=== PATIENT | female | born 1960 | race African-American/Black ===

== ENCOUNTER 2016-11-24 09:41 | Inpatient (IN) | payer OTHER ==
[2016-11-24 10:27] VITALS: BMI 33.3
--- NOTE | 2016-11-24 12:51 | HP ---
CIWA Score - CIWA Score Nausea/Vomitin Muscle Tremors: 3 Anxiety: 3 Agitation: 3 Paroxysmal Sweats: 2 Orientation: 0-Oriented Tacttile Disturbances: 2-Mild Itch/Numbness/Burn Auditory Disturbances: 2-Mild Harshness/Frighten Visual Disturbances: 2-Mild Sensitivity Headache: 2-Mild CIWA-Ar Total Score: 22 Admission ROS BHS - HPI Chief Complaint: I NEED HELP TO STOP DRINKING ALCOHOL Allergies/Adverse Reactions: Allergies Allergy/AdvReac Type Severity Reaction Status Date / Time No Known Allergies Allergy Verified 11/24/16 10:40 History of Present Illness: THIS 56 YEARS OLD FEMALE WITH ALCOHOL DEPENDENCE,WITHDRAWAL SYMPTOM,LAST DETOX 06/08/16 TO 06/12/16 [facility] SYNCOPE ALCOHOL RELATED HYPERTENSION BIPOLAR DISORDER MULTIPLE ADMISSIONS IN THE PAST NO SIGNIFICANT PERIOD OF SOBRIETY Exam Limitations: No Limitations - Ebola screening Have you traveled outside of the country in the last 21 days: No Have you been sick,other than usual withdrawal symptoms: No - Review of Systems Constitutional: Loss of Appetite, Malaise, Night Sweats, Changes in sleep, Weakness EENT: reports: Nose Congestion Respiratory: reports: No Symptoms reported Cardiac: reports: No Symptoms Reported GI: reports: Diarrhea, Nausea, Vomiting, Abdominal cramping : reports: No Symptoms Reported Musculoskeletal: reports: Back Pain, Muscle Pain Integumentary: reports: Dryness Endocrine: reports: No Symptoms Reported Hematology: reports: No Symptoms Reported Psychiatric: reports: other (BIPOLAR DISORDER) Patient History - Patient Medical History Hx Anemia: No Hx Asthma: Yes (NO MEDICATION) Hx Chronic Obstructive Pulmonary Disease (COPD): No Hx Cancer: No Hx Cardiac Disorders: No Hx Congestive Heart Failure: No Hx Hypertension: Yes (ON MEDS) Hx Hypercholesterolemia: No Hx Pacemaker: No HX Cerebrovascular Accident: No Hx Seizures: No Hx Dementia: No Hx Diabetes: No Hx Gastrointestinal Disorders: No Hx Liver Disease: No Hx Genitourinary Disorders: No Hx Sexually Transmitted Disorders: No Hx Renal Disease (ESRD): No Hx Thyroid Disease: No Hx Human Immunodeficiency Virus (HIV): No (LAST 2015 NEGATIVE) Hx Hepatitis C: No Hx Depression: Yes (ON MED) Hx Suicide Attempt: No Hx Bipolar Disorder: Yes (ON MED) Hx Schizophrenia: No Other Medical History: NO SUICIDAL,NO HOMICIDAL - Patient Surgical History Past Surgical History: Yes Hx Neurologic Surgery: No Hx Cataract Extraction: No Hx Cardiac Surgery: No Hx Lung Surgery: No Hx Breast Surgery: No Hx Breast Biopsy: No Hx Abdominal Surgery: No Hx Appendectomy: No Hx Cholecystectomy: No Hx Genitourinary Surgery: No Hx Section: No Hx Orthopedic Surgery: No Hx Hysterectomy: No Other Surgical History: fibroid uterus 2012 Anesthesia Reaction: No - PPD History Previous Implant?: Yes Documented Results: Negative w/proof Implanted On Prior [facility] Admission?: Yes Date: 06/10/16 Results: 0 mm PPD to be Administered?: No - Reproductive History Patient is a Female of Child Bearing Age (11 -55 yrs old): No Last Menstrual Period: 11/08/16 Patient : No - Smoking Cessation Smoking history: Never smoked Have you smoked in the past 12 months: No Hx Chewing Tobacco Use: No Initiated information on smoking cessation: No - Substance & Tx. History Hx Alcohol Use: Yes Hx Substance Use: No Substance Use Type: Alcohol Hx Substance Use Treatment: Yes ([facility] 06/08/16 TO 06/12/16 ) - Substances Abused Alcohol-vodka Route: Oral Frequency: Daily Amount used: 1 pt. Age of first use: 15 Date of Last Use: 11/24/16 Family Disease History - Family Disease History Family History: Denies Family Disease History: Other: Father (never meet) Admission Physical Exam BHS - Vital Signs Vital Signs: Vital Signs - 24 hr 11/24/16 10:23 Temperature 98 F Pulse Rate 78 Respiratory 18 Rate Blood Pressure 134/92 - Physical General Appearance: Yes: Moderate Distress, Tremorous, Irritable, Sweating, Anxious HEENTM: Yes: Within Normal Limits, Normocephalic, [place], Nasal Congestion Respiratory: Yes: Lungs Clear Neck: Yes: Within Normal Limits, Supple Breast: Yes: Breast Exam Deferred Cardiology: Yes: Within Normal Limits, Regular Rhythm, Regular Rate, S1, S2 Abdominal: Yes: Within Normal Limits, Normal Bowel Sounds, Non Tender, Flat, Soft Genitourinary: Yes: Within Normal Limits Back: Yes: Muscle Spasm Musculoskeletal: Yes: Back pain, Muscle Pain Extremities: Yes: Within Normal Limits, Tremors, Other (UNABLE TO DO FLEXION OF RIGHT RING FINGER FOR 2 YEARS FORM OLD LECERATION) 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, Fully Oriented, Alert, Motor Strength 5/5 Integumentary: Yes: Dry Lymphatic: Yes: Within Normal Limits - Diagnostic (1) Alcohol dependence with withdrawal Current Visit: No Status: Chronic Qualifiers: Complication of substance-induced condition: uncomplicated Qualified Code(s): F10.230 - Alcohol dependence with withdrawal, uncomplicated (2) Uterine fibroid Current Visit: No Status: Chronic Qualifiers: Uterine leiomyoma location: unspecified location Qualified Code(s): D25.9 - Leiomyoma of uterus, unspecified (3) Syncope Current Visit: Yes Status: Acute (4) Essential hypertension Current Visit: Yes Status: Acute (5) Bipolar disorder Current Visit: Yes Status: Acute (6) Asthma Current Visit: Yes Status: Acute Cleared for Admission S - Detox or Rehab S Level of Care: Medically Managed Detox Regimen/Protocol: Librium S Breath Alcohol Content Breath Alcohol Content: 0.032 Urine Pregancy Test - Result Urine Test Results: Negative- NO Line Present Urine Drug Screen - Results Drug Screen Negative: Yes
[2016-11-24] MEDS ORDERED: MENTHOL/PHENOL 1 EACH UD MM PRN (13:00)
[2016-11-24] MEDS ORDERED: chlordiazePOXIDE HCL 25 MG CAPSULE PO ONE (13:00)
[2016-11-24] MEDS ORDERED: MAG HYDROX/AL HYDROX/SIMETH 30 ML UNIT-DOSE CUP PO PRN (13:00)
[2016-11-24] MEDS ORDERED: hydrOXYzine PAMOATE 50 MG CAPSULE (FP) PO PRN (13:00)
[2016-11-24] MEDS ORDERED: IBUPROFEN 400 MG TABLET (FP) PO PRN (13:00)
[2016-11-24] MEDS ORDERED: diphenhydrAMINE HCL 50 MG CAPSULE PO PRN (13:00)
[2016-11-24] MEDS ORDERED: ACETAMINOPHEN 325 MG TABLET (FP) PO PRN (13:00)
[2016-11-24] MEDS ORDERED: MAGNESIUM HYDROX 2400MG/30ML ORAL SUSPENSION 30 ML CUP PO PRN (13:00)
[2016-11-24] MEDS ORDERED: MAGNESIUM CITRATE 300 ML BOTTLE PO PRN (13:00)
[2016-11-24] MEDS ORDERED: chlordiazePOXIDE HCL 25 MG CAPSULE PO PRN (13:00)
[2016-11-24] MEDS ORDERED: LOPERAMIDE HCL 2 MG CAPSULE PO PRN (13:00)
[2016-11-24] MEDS ORDERED: P-EPHED 60MG/TRIPROLIDI 2.5MG TABLET PO PRN (13:00)
[2016-11-24] MEDS ORDERED: guaiFENesin/D-METHORPHAN HB 10 ML UNIT-DOSE CUPS PO PRN (13:00)
--- NOTE | 2016-11-24 17:05 | CONSULT ---
[facility] Psychiatric Consult - Data Date of interview: 11/24/16 Admission source: [facility] Identifying data: Readmission to [facility] for this 56 y/o AA female seeking detox treatment on for alcohol dependence.Patient is ,a mother of three,domiciled,unemployed and supported on Public Assistance. Substance Abuse History: - Smoking Cessation. Smoking history: Never smoked. Have you smoked in the past 12 months: No. Hx Chewing Tobacco Use: No. Initiated information on smoking cessation: No. - Substance & Tx. History. Hx Alcohol Use: Yes. Hx Substance Use: No. Substance Use Type: Alcohol. Hx Substance Use Treatment: Yes ([facility] 06/08/16 TO 06/12/16 ). - Substances Abused. Alcohol-vodka. Route: Oral. Frequency: Daily. Amount used: 1 pt. Age of first use: 15. Date of Last Use: 11/24/16. Confirmed by patient in this interview. Medical History: Bronchial asthma,hypertension and a history of uterine fibroids. Psychiatric History: History of a distant psychiatric hospitalization at [facility].Diagnosed with " Bipolar Disorder and Schizophrenia." Apparently, the patient never followed up with OPD care.Ms Kemp got medicated for the first time,only recently,during her stay at a senior living ([facility]) by the on -site psychiatrist.She used to be on zoloft and risperdal.Patient is currently on lexapro 10 mg/day + risperdal 1 mg/day (confirmed by pharmacist at [facility] in [facility]).Ms Kemp has authorized (verbally) this credit underwriter to contact the pharmacist by telephone.Patient denies history of suicide attempts. Physical/Sexual Abuse/Trauma History: Patient denies. Additional Comment: Drug Screen is negative. Mental Status Exam - Mental Status Exam Alert and Oriented to: Time, Place, Person Cognitive Function: Good Patient Appearance: Well Groomed Mood: Anxious, Hopeful Affect: Appropriate, Normal Range Patient Behavior: Fatigued, Appropriate, Cooperative Speech Pattern: Clear, Appropriate Voice Loudness: Normal Thought Process: Goal Oriented Thought Disorder: Not Present Hallucinations: Denies Suicidal Ideation: Denies Homicidal Ideation: Denies Insight/Judgement: Fair Sleep: Poorly, Difficulty falling asleep Appetite: Good Muscle strength/Tone: Normal Gait/Station: Normal Psychiatric Findings - Problem List ([place] 1, 2,3) (1) Alcohol dependence with withdrawal Current Visit: Yes Status: Acute Qualifiers: Complication of substance-induced condition: uncomplicated Qualified Code(s): F10.230 - Alcohol dependence with withdrawal, uncomplicated (2) Substance-induced sleep disorder Current Visit: Yes Status: Acute (3) Substance induced mood disorder Current Visit: Yes Status: Acute (4) Bipolar disorder Current Visit: Yes Status: Chronic Comment: History. (5) Asthma Current Visit: Yes Status: Chronic (6) Essential hypertension Current Visit: Yes Status: Chronic (7) Uterine fibroid Current Visit: Yes Status: Chronic Qualifiers: Uterine leiomyoma location: unspecified location Qualified Code(s): D25.9 - Leiomyoma of uterus, unspecified - Initial Treatment Plan Initial Treatment Plan: Psychoeducation.Detoxification.Medications : lexapro 10 mg po daily + risperdal 1 mg po hs + zolpidem 10 mg po hs prn.Side effects/ benefits discussed with the patient.She agreees with this plan of care.Observation.
[2016-11-24] MEDS: chlordiazePOXIDE HCL 25 MG CAPSULE PO SCH ×2 (17:26→22:41)
[2016-11-24 21:45] LABS: URINE APPEARANCE CLEAR; URINE BILIRUBIN NEGATIVE (NEGATIVE); URINE COLOR YELLOW; URINE GLUCOSE (UA) NEGATIVE (NEGATIVE); URINE KETONE NEGATIVE (NEGATIVE); URINE LEUK ESTERASE NEGATIVE (NEGATIVE); URINE NITRITE NEGATIVE (NEGATIVE); URINE UROBILINOGEN NEGATIVE E.U./dl (0.2-1.0)
[2016-11-24 21:46] LABS: URINE BLOOD 1+ (NEGATIVE); URINE PROTEIN 2+ (NEGATIVE)
[2016-11-24 21:50] LABS: URINE MUCUS RARE; URINE RBC 11 /hpf (0-3); URINE WBC 2 /hpf (3-5)
[2016-11-24] MEDS: THIAMINE HCL 100 MG TABLET (FP) PO SCH (22:41)
[2016-11-24] MEDS: ENALAPRIL MALEATE 10 MG TABLET (FP) PO SCH (22:41)
[2016-11-24] MEDS: risperiDONE 1 MG TABLET (FP) PO SCH (22:41)
[2016-11-25] MEDS: chlordiazePOXIDE HCL 25 MG CAPSULE PO SCH ×4 (05:54→22:43)
[2016-11-25] MEDS: PRENATAL VITAMINS W/ FOLIC ACID TABLET (FP) PO SCH (10:41)
[2016-11-25] MEDS: ESCITALOPRAM OXALATE 10 MG TABLET (FP) PO SCH (10:41)
[2016-11-25] MEDS: TRIAMTERENE AND HCTZ - 37.5 MG/25 MG CAPSULE PO SCH (10:41)
[2016-11-25] MEDS: ENALAPRIL MALEATE 10 MG TABLET (FP) PO SCH ×2 (10:41→22:44)
[2016-11-25 11:13] LABS: MCH 32.5 pg (25.7-33.7); MCHC 33.5 g/dl (32.0-36.0); MEAN CELL VOLUME 97.1 fl (80-96); MEAN PLT VOLUME 10.6 fl (7.5-11.1); PLATELET COUNT 235 K/MM3 (134-434); RDW 13.6 % (11.6-15.6); WHITE BLOOD COUNT 5.7 K/mm3 (4.0-10.0)
[2016-11-25 11:31] LABS: ALBUMIN 3.8 g/dl (3.4-5.0); BILIRUBIN,TOTAL 0.5 mg/dL (0.2-1.0); CALCIUM 9.5 mg/dL (8.5-10.1); CREATININE 1.1 mg/dL (0.55-1.02); TOT PROT 7.8 g/dl (6.4-8.2)
--- NOTE | 2016-11-25 13:07 | PN ---
S CIWA - CIWA Score Nausea/Vomitin Muscle Tremors: 3 Anxiety: 3 Agitation: 3 Paroxysmal Sweats: 1-Minimal Palms Moist Orientation: 0-Oriented Tacttile Disturbances: 1-Very Mild Itch/Numbness Auditory Disturbances: 1-Very Mild Visual Disturbances: 1-Very Mild Sensitivity Headache: 2-Mild CIWA-Ar Total Score: 18 BHS Progress Note (SOAP) Subjective: ALERT,IRRITABLE,ANXIOUS,INTERRUPTED SLEEP,TREMOR Objective: 11/25/16 13:05 Vital Signs Temperature 97.7 F 11/25/16 10:29 Pulse Rate 76 11/25/16 10:29 Respiratory Rate 18 11/25/16 10:29 Blood Pressure 133/92 11/25/16 10:29 O2 Sat by Pulse Oximetry (%) EKG NSR,LVH NO CHEST PAIN,NO SOB,NO DIZZINESS 11/25/16 13:06 Laboratory Last Values WBC 5.7 K/mm3 (4.0-10.0) 11/25/16 06:15 RBC 3.58 M/mm3 (3.60-5.2) L 11/25/16 06:15 Hgb 11.6 GM/dL (10.7-15.3) 11/25/16 06:15 Hct 34.8 % (32.4-45.2) 11/25/16 06:15 MCV 97.1 fl (80-96) H 11/25/16 06:15 MCHC 33.5 g/dl (32.0-36.0) 11/25/16 06:15 RDW 13.6 % (11.6-15.6) 11/25/16 06:15 Plt Count 235 K/MM3 (134-434) D 11/25/16 06:15 MPV 10.6 fl (7.5-11.1) D 11/25/16 06:15 Sodium 140 mmol/L (136-145) 11/25/16 06:15 Potassium 3.9 mmol/L (3.5-5.1) 11/25/16 06:15 Chloride 103 mmol/L (98-107) 11/25/16 06:15 Carbon Dioxide 28 mmol/L (21-32) 11/25/16 06:15 Anion Gap 9 (8-16) 11/25/16 06:15 BUN 22 mg/dL (7-18) H D 11/25/16 06:15 Creatinine 1.1 mg/dL (0.55-1.02) H D 11/25/16 06:15 Creat Clearance w eGFR 51.38 (>60) 11/25/16 06:15 Random Glucose 86 mg/dL (74-106) 11/25/16 06:15 Calcium 9.5 mg/dL (8.5-10.1) 11/25/16 06:15 Total Bilirubin 0.5 mg/dL (0.2-1.0) D 11/25/16 06:15 AST 23 U/L (15-37) D 11/25/16 06:15 ALT 27 U/L (12-78) D 11/25/16 06:15 Alkaline Phosphatase 98 U/L (45-117) 11/25/16 06:15 Total Protein 7.8 g/dl (6.4-8.2) 11/25/16 06:15 Albumin 3.8 g/dl (3.4-5.0) 11/25/16 06:15 Urine Color Yellow 11/24/16 21:00 Urine Appearance Clear 11/24/16 21:00 Urine pH 5.0 (5.0-8.0) 11/24/16 21:00 Ur Specific [place] 1.017 (1.001-1.035) 11/24/16 21:00 Urine Protein 2+ (NEGATIVE) H 11/24/16 21:00 Urine Glucose (UA) Negative (NEGATIVE) 11/24/16 21:00 Urine Ketones Negative (NEGATIVE) 11/24/16 21:00 Urine Blood 1+ (NEGATIVE) H 11/24/16 21:00 Urine Nitrite Negative (NEGATIVE) 11/24/16 21:00 Urine Bilirubin Negative (NEGATIVE) 11/24/16 21:00 Urine Urobilinogen Negative E.U./dl (0.2-1.0) 11/24/16 21:00 Ur Leukocyte Esterase Negative (NEGATIVE) 11/24/16 21:00 Urine RBC 11 /hpf (0-3) 11/24/16 21:00 Urine WBC 2 /hpf (3-5) 11/24/16 21:00 Ur Epithelial Cells Few /hpf (FEW) 11/24/16 21:00 Urine Mucus Rare 11/24/16 21:00 Hepatitis C Antibody <0.1 s/co ratio (0.0-0.9) 11/24/16 13:00 Assessment: 11/25/16 13:06 WITHDRAWAL SYMPTOM Plan: CONTINUE DETOX,ENCOURAGE ORAL FLUID
[2016-11-25] MEDS: ZOLPIDEM TARTRATE 10 MG TABLET (PARK CARE ONLY) PO PRN (22:43)
[2016-11-25] MEDS: THIAMINE HCL 100 MG TABLET (FP) PO SCH (22:44)
[2016-11-25] MEDS: risperiDONE 1 MG TABLET (FP) PO SCH (22:44)
[2016-11-26] MEDS: chlordiazePOXIDE HCL 25 MG CAPSULE PO SCH ×2 (05:41→10:30)
[2016-11-26] MEDS: PRENATAL VITAMINS W/ FOLIC ACID TABLET (FP) PO SCH (10:30)
[2016-11-26] MEDS: ESCITALOPRAM OXALATE 10 MG TABLET (FP) PO SCH (10:30)
[2016-11-26] MEDS: TRIAMTERENE AND HCTZ - 37.5 MG/25 MG CAPSULE PO SCH (10:31)
[2016-11-26] MEDS: ENALAPRIL MALEATE 10 MG TABLET (FP) PO SCH ×2 (10:31→22:27)
--- NOTE | 2016-11-26 13:33 | PN ---
BHS CIWA - CIWA Score Nausea/Vomitin Muscle Tremors: 3 Anxiety: 3 Agitation: 3 Paroxysmal Sweats: 1-Minimal Palms Moist Orientation: 0-Oriented Tacttile Disturbances: 1-Very Mild Itch/Numbness Auditory Disturbances: 1-Very Mild Visual Disturbances: 1-Very Mild Sensitivity Headache: 2-Mild CIWA-Ar Total Score: 18 BHS Progress Note (SOAP) Subjective: ALERT,IRRITABLE,ANXIOUS,INTERRUPTED SLEEP,TREMOR,PAIN IN THE BODY AND BACK Objective: 11/26/16 13:31 Vital Signs Temperature 98.6 F 11/26/16 09:57 Pulse Rate 76 11/26/16 09:57 Respiratory Rate 16 11/26/16 09:57 Blood Pressure 140/95 11/26/16 09:57 O2 Sat by Pulse Oximetry (%) Assessment: 11/26/16 13:32 WITHDRAWAL SYMPTOM 11/26/16 13:32 Plan: CONTINUE DETOX
[2016-11-26] MEDS: chlordiazePOXIDE 5 MG CAPSULE PO SCH ×2 (18:12→22:26)
[2016-11-26] MEDS: THIAMINE HCL 100 MG TABLET (FP) PO SCH (22:26)
[2016-11-26] MEDS: risperiDONE 1 MG TABLET (FP) PO SCH (22:26)
[2016-11-26] MEDS: ZOLPIDEM TARTRATE 10 MG TABLET (PARK CARE ONLY) PO PRN (22:27)
[2016-11-27] MEDS: chlordiazePOXIDE 5 MG CAPSULE PO SCH ×2 (05:51→10:29)
--- NOTE | 2016-11-27 10:13 | PN ---
BHS Progress Note (SOAP) Subjective: feeling better ,seats, wants early am d/c Objective: 11/27/16 10:12 Vital Signs Temperature 97.3 F L 11/27/16 06:00 Pulse Rate 69 11/27/16 06:00 Respiratory Rate 18 11/27/16 06:00 Blood Pressure 118/75 11/27/16 06:00 O2 Sat by Pulse Oximetry (%) Laboratory Tests 11/24/16 11/24/16 11/25/16 13:00 21:00 06:15 WBC 5.7 RBC 3.58 L Hgb 11.6 Hct 34.8 MCV 97.1 H MCHC 33.5 RDW 13.6 Plt Count 235 D MPV 10.6 D Sodium Potassium Chloride Carbon Dioxide Anion Gap BUN Creatinine Creat Clearance w eGFR Random Glucose Calcium Total Bilirubin AST ALT Alkaline Phosphatase Total Protein Albumin Urine Color Yellow Urine Appearance Clear Urine pH 5.0 Ur Specific [place] 1.017 Urine Protein 2+ H Urine Glucose (UA) Negative Urine Ketones Negative Urine Blood 1+ H Urine Nitrite Negative Urine Bilirubin Negative Urine Urobilinogen Negative Ur Leukocyte Esterase Negative Urine RBC 11 Urine WBC 2 Ur Epithelial Cells Few Urine Mucus Rare RPR Titer Hepatitis C Antibody <0.1 11/25/16 11/25/16 06:15 06:15 WBC RBC Hgb Hct MCV MCHC RDW Plt Count MPV Sodium 140 Potassium 3.9 Chloride 103 Carbon Dioxide 28 Anion Gap 9 BUN 22 H D Creatinine 1.1 H D Creat Clearance w eGFR 51.38 Random Glucose 86 Calcium 9.5 Total Bilirubin 0.5 D AST 23 D ALT 27 D Alkaline Phosphatase 98 Total Protein 7.8 Albumin 3.8 Urine Color Urine Appearance Urine pH Ur Specific [place] Urine Protein Urine Glucose (UA) Urine Ketones Urine Blood Urine Nitrite Urine Bilirubin Urine Urobilinogen Ur Leukocyte Esterase Urine RBC Urine WBC Ur Epithelial Cells Urine Mucus RPR Titer Nonreactive Hepatitis C Antibody pt aox3 in nad ambulating Assessment: 11/27/16 10:12 withdrawal sx;s Plan: cont. detox increase fluids d/c at 7am
[2016-11-27] MEDS: PRENATAL VITAMINS W/ FOLIC ACID TABLET (FP) PO SCH (10:29)
[2016-11-27] MEDS: ESCITALOPRAM OXALATE 10 MG TABLET (FP) PO SCH (10:29)
[2016-11-27] MEDS: ENALAPRIL MALEATE 10 MG TABLET (FP) PO SCH ×2 (10:29→22:25)
[2016-11-27] MEDS: TRIAMTERENE AND HCTZ - 37.5 MG/25 MG CAPSULE PO SCH (10:29)
--- NOTE | 2016-11-27 11:33 | EKG ---
Test Reason : Blood Pressure : / mmHG Vent. Rate : 076 BPM Atrial Rate : 076 BPM P-R Int : 172 ms QRS Dur : 092 ms QT Int : 386 ms P-R-T Axes : 050 001 065 degrees QTc Int : 434 ms NORMAL SINUS RHYTHM MODERATE VOLTAGE CRITERIA FOR LVH, MAY BE NORMAL VARIANT NONSPECIFIC ST ABNORMALITY ABNORMAL ECG NO PREVIOUS ECGS AVAILABLE Confirmed by JOSE HERBERT MD ([id number]) on 11/27/2016 11:32:34 AM Referred By: Parvez Esparza Confirmed By:JOSE HERBERT MD
[2016-11-27] MEDS: chlordiazePOXIDE HCL 10 MG CAPSULE PO SCH ×2 (17:05→22:25)
[2016-11-27] MEDS: THIAMINE HCL 100 MG TABLET (FP) PO SCH (22:24)
[2016-11-27] MEDS: risperiDONE 1 MG TABLET (FP) PO SCH (22:25)
[2016-11-28] MEDS: chlordiazePOXIDE HCL 10 MG CAPSULE PO SCH (05:43)
[2016-11-28 06:21] VITALS: BP 136/92; PULSE 78; TEMP 97
--- NOTE | 2016-11-29 16:40 | DS ---
[facility] Detox Discharge Summary Admission Date: 11/24/16 Discharge Date: 11/28/16 - History Present History: Alcohol Dependence Pertinent Past History: Asthma HTN Uterine Fibroid - Physical Exam Results Vital Signs: Vital Signs Temperature 97 F L 11/28/16 06:21 Pulse Rate 78 11/28/16 06:21 Respiratory Rate 18 11/28/16 06:21 Blood Pressure 136/92 11/28/16 06:21 O2 Sat by Pulse Oximetry (%) Pertinent Admission Physical Exam Findings: Withdrawal sx. Laboratory Last Values WBC 5.7 K/mm3 (4.0-10.0) 11/25/16 06:15 RBC 3.58 M/mm3 (3.60-5.2) L 11/25/16 06:15 Hgb 11.6 GM/dL (10.7-15.3) 11/25/16 06:15 Hct 34.8 % (32.4-45.2) 11/25/16 06:15 MCV 97.1 fl (80-96) H 11/25/16 06:15 MCHC 33.5 g/dl (32.0-36.0) 11/25/16 06:15 RDW 13.6 % (11.6-15.6) 11/25/16 06:15 Plt Count 235 K/MM3 (134-434) D 11/25/16 06:15 MPV 10.6 fl (7.5-11.1) D 11/25/16 06:15 Sodium 140 mmol/L (136-145) 11/25/16 06:15 Potassium 3.9 mmol/L (3.5-5.1) 11/25/16 06:15 Chloride 103 mmol/L (98-107) 11/25/16 06:15 Carbon Dioxide 28 mmol/L (21-32) 11/25/16 06:15 Anion Gap 9 (8-16) 11/25/16 06:15 BUN 22 mg/dL (7-18) H D 11/25/16 06:15 Creatinine 1.1 mg/dL (0.55-1.02) H D 11/25/16 06:15 Creat Clearance w eGFR 51.38 (>60) 11/25/16 06:15 Random Glucose 86 mg/dL (74-106) 11/25/16 06:15 Calcium 9.5 mg/dL (8.5-10.1) 11/25/16 06:15 Total Bilirubin 0.5 mg/dL (0.2-1.0) D 11/25/16 06:15 AST 23 U/L (15-37) D 11/25/16 06:15 ALT 27 U/L (12-78) D 11/25/16 06:15 Alkaline Phosphatase 98 U/L (45-117) 11/25/16 06:15 Total Protein 7.8 g/dl (6.4-8.2) 11/25/16 06:15 Albumin 3.8 g/dl (3.4-5.0) 11/25/16 06:15 Urine Color Yellow 11/24/16 21:00 Urine Appearance Clear 11/24/16 21:00 Urine pH 5.0 (5.0-8.0) 11/24/16 21:00 Ur Specific [place] 1.017 (1.001-1.035) 11/24/16 21:00 Urine Protein 2+ (NEGATIVE) H 11/24/16 21:00 Urine Glucose (UA) Negative (NEGATIVE) 11/24/16 21:00 Urine Ketones Negative (NEGATIVE) 11/24/16 21:00 Urine Blood 1+ (NEGATIVE) H 11/24/16 21:00 Urine Nitrite Negative (NEGATIVE) 11/24/16 21:00 Urine Bilirubin Negative (NEGATIVE) 11/24/16 21:00 Urine Urobilinogen Negative E.U./dl (0.2-1.0) 11/24/16 21:00 Ur Leukocyte Esterase Negative (NEGATIVE) 11/24/16 21:00 Urine RBC 11 /hpf (0-3) 11/24/16 21:00 Urine WBC 2 /hpf (3-5) 11/24/16 21:00 Ur Epithelial Cells Few /hpf (FEW) 11/24/16 21:00 Urine Mucus Rare 11/24/16 21:00 RPR Titer Nonreactive (NONREACTIVE) 11/25/16 06:15 Hepatitis C Antibody <0.1 s/co ratio (0.0-0.9) 11/24/16 13:00 labs noted - Treatment Hospital Course: Detox Protocol Followed, Detoxed Safely, Responded well, Discharged Condition Good Patient has Accepted a Rehab Referral to: Pt. refused referral to rehab, information for IOP at [facility] - Medication Discharge Medications: Ambulatory Orders Enalapril Maleate [Vasotec -] 20 mg PO BID #60 tablet 07/05/16 Hctz 25Mg/Triamterene [Dyazide 25/37.5 -] 1 cap PO DAILY #30 capsule 07/05/16 Trazodone HCl [Desyrel -] 50 mg PO HS #30 tablet 07/05/16 Escitalopram Oxalate [Lexapro -] 10 mg PO DAILY #30 tablet 11/24/16 Risperidone [Risperdal] 1 mg PO DAILY #30 tablet 11/24/16 - Diagnosis (1) Alcohol dependence with withdrawal Status: Acute Qualifiers: Complication of substance-induced condition: uncomplicated Qualified Code(s): F10.230 - Alcohol dependence with withdrawal, uncomplicated (2) Substance induced mood disorder Status: Acute (3) Substance-induced sleep disorder Status: Acute (4) Asthma Status: Chronic (5) Bipolar disorder Status: Chronic (6) Essential hypertension Status: Chronic (7) Uterine fibroid Status: Chronic Qualifiers: Uterine leiomyoma location: unspecified location Qualified Code(s): D25.9 - Leiomyoma of uterus, unspecified - AMA Did Patient Leave Against Medical Advice: No
== END 2016-11-28 07:25 | disposition home or self-care (01) | DRG 775 ==
LOC: YASAS 09:41 → Y6N 11:52
PROVIDERS: ADMIT Internal Medicine; ATTEND Internal Medicine
PROC: HZ2ZZZZ Detoxification Services for Substance Abuse Treatment (ICD-10-PCS; principal; 2016-11-28)
DX: F10.230 Alcohol dependence with withdrawal, uncomplicated (principal); F19.24 Other psychoactive substance dependence with psychoactive substance-induced mood disorder; F19.282 Other psychoactive substance dependence with psychoactive substance-induced sleep disorder; F32.9 Major depressive disorder, single episode, unspecified; I10 Essential (primary) hypertension; J45.909 Unspecified asthma, uncomplicated; D25.9 Leiomyoma of uterus, unspecified; R55 Syncope and collapse
CPT/HCPCS: 36415; 80053; 81003; 81015; 85027; 86593; 93005; 93010; J2794

== ENCOUNTER 2017-06-04 14:20 | Inpatient (IN) | payer OTHER ==
[2017-06-04 17:15] VITALS: BMI 33.3
--- NOTE | 2017-06-04 18:57 | HP ---
CIWA Score - CIWA Score Nausea/Vomitin-Mild Nausea/No Vomiting Muscle Tremors: 4-Moderate,w/Arms Extend Anxiety: 5 Agitation: 4-Moderately Restless Paroxysmal Sweats: 1-Minimal Palms Moist Orientation: 2-Disoriented Date<2 days Tacttile Disturbances: 0-None Auditory Disturbances: 0-None Visual Disturbances: 0-None Headache: 0-None Present CIWA-Ar Total Score: 17 Admission ROS BHS - HPI Chief Complaint: WITHDRAWAL SX PATIENT LIVES IN [facility], [phone] REPORTS RECENT HOSPITALIZED X 5 DAYS, DISCHARGED BACK TO [facility] WITH MILDER MEDICATION CHANGED, HACK SAW OPERATOR CALLED NO ANSWER Allergies/Adverse Reactions: Allergies Allergy/AdvReac Type Severity Reaction Status Date / Time No Known Allergies Allergy Verified 06/04/17 17:28 History of Present Illness: 56 YEARS OLD FEMALE WITH LONG HISTORY OF ALCOHOL DEPENDENCE HAS HYPERTENSION AND BIPOLAR II IS ADMITTED TO DETOX PATIENT HAS BENZO IN URINE REPORTS "FEW DAYS AGO" WENT TO [facility] FOR ALCOHOL INTOXICATION Exam Limitations: No Limitations - Ebola screening Have you traveled outside of the country in the last 21 days: No Have you had contact with anyone from an Ebola affected area: No Have you been sick,other than usual withdrawal symptoms: No Do you have a fever: No - Review of Systems Constitutional: Changes in sleep, Weight Stable EENT: reports: No Symptoms Reported Respiratory: reports: No Symptoms reported Cardiac: reports: No Symptoms Reported GI: reports: Nausea, Poor Fluid Intake, Abdominal cramping : reports: No Symptoms Reported Musculoskeletal: reports: No Symptoms Reported Integumentary: reports: No Symptoms Reported Neuro: reports: Tremors Endocrine: reports: No Symptoms Reported Hematology: reports: No Symptoms Reported Psychiatric: reports: Judgement Intact, Anxious, Depressed Other Systems: Reviewed and Negative Patient History - Patient Medical History Hx Anemia: No Hx Asthma: No (NO MEDICATION) Hx Chronic Obstructive Pulmonary Disease (COPD): No Hx Cancer: No Hx Cardiac Disorders: No Hx Congestive Heart Failure: No Hx Hypertension: Yes (ON MEDS) Hx Hypercholesterolemia: No Hx Pacemaker: No HX Cerebrovascular Accident: No Hx Seizures: No Hx Dementia: No Hx Diabetes: No Hx Gastrointestinal Disorders: No Hx Liver Disease: No Hx Genitourinary Disorders: No Hx Sexually Transmitted Disorders: No Hx Renal Disease (ESRD): No Hx Thyroid Disease: No Hx Human Immunodeficiency Virus (HIV): No (LAST 2015 NEGATIVE) Hx Hepatitis C: No Hx Depression: Yes (ON MED) Hx Suicide Attempt: No Hx Bipolar Disorder: Yes (ON MED) Hx Schizophrenia: No - Patient Surgical History Past Surgical History: Yes Hx Neurologic Surgery: No Hx Cataract Extraction: No Hx Cardiac Surgery: No Hx Lung Surgery: No Hx Breast Surgery: No Hx Breast Biopsy: No Hx Abdominal Surgery: No Hx Appendectomy: No Hx Cholecystectomy: No Hx Genitourinary Surgery: No Hx Section: No Hx Orthopedic Surgery: No Hx Hysterectomy: No Other Surgical History: fibroid uterus 2012 Anesthesia Reaction: No - PPD History Previous Implant?: Yes Documented Results: Negative w/proof Implanted On Prior [facility] Admission?: Yes Date: 11/26/16 Results: 0 mm PPD to be Administered?: No - Reproductive History Patient is a Female of Child Bearing Age (11 -55 yrs old): Yes Last Menstrual Period: 12/02/16 Patient : No - Smoking Cessation Smoking history: Never smoked Have you smoked in the past 12 months: No Hx Chewing Tobacco Use: No Initiated information on smoking cessation: No - Substance & Tx. History Hx Alcohol Use: Yes Hx Substance Use: No Substance Use Type: Alcohol Hx Substance Use Treatment: Yes (11/24-11/28/16 [facility]) - Substances Abused Alcohol Route: Oral Frequency: Daily Amount used: LIQUOR- 3 PINTS, BEER- 1 SIX PACK Age of first use: 18 Date of Last Use: 06/04/17 Family Disease History - Family Disease History Family Disease History: Heart Disease: Mother, Other: Father (never meet) Admission Physical Exam S - Vital Signs Vital Signs: Vital Signs - 24 hr 06/04/17 17:13 Temperature 98.2 F Pulse Rate 108 H Respiratory 20 Rate Blood Pressure 165/111 - Physical General Appearance: Yes: Appropriately Dressed, Mild Distress, Alcohol on Breath , Obese, Tremorous, Irritable, Sweating, Anxious HEENTM: Yes: Hearing grossly Normal, Normal ENT Inspection, Normocephalic, Normal Voice Respiratory: Yes: Chest Non-Tender, Lungs Clear, Normal Breath Sounds, No Respiratory Distress, No Accessory Muscle Use Neck: Yes: Supple, Trachea in good position Breast: Yes: Breasts Symetrical Cardiology: Yes: Regular Rhythm, S1, S2, Tachycardia Abdominal: Yes: Non Tender, Soft, Increased Bowel Sounds Genitourinary: Yes: Within Normal Limits Back: Yes: Normal Inspection Musculoskeletal: Yes: full range of Motion, Gait Steady Extremities: Yes: Normal Inspection, Normal Range of Motion, Non-Tender, Tremors Neurological: Yes: Alert, Motor Strength 5/5, Normal Response, Depressed Affect Integumentary: Yes: Warm, Pitting Edema (MILD BOTH ANKLES) Lymphatic: Yes: Within Normal Limits - Diagnostic (1) Alcohol dependence with withdrawal Current Visit: Yes Status: Acute Qualifiers: Complication of substance-induced condition: uncomplicated Qualified Code(s): F10.230 - Alcohol dependence with withdrawal, uncomplicated (2) Essential hypertension Current Visit: Yes Status: Chronic (3) Bipolar II disorder Current Visit: Yes Status: Suspected Cleared for Admission [facility] - Detox or Rehab [facility] Level of Care: Medically Managed Detox Regimen/Protocol: Librium [facility] Breath Alcohol Content Breath Alcohol Content: 0.241 Urine Pregancy Test - Result Urine Test Results: Negative- NO Line Present Urine Drug Screen - Results Drug Screen Negative: No Urine Drug Screen Results: BZO-Benzodiazepines
[2017-06-04] MEDS ORDERED: P-EPHED 60MG/TRIPROLIDI 2.5MG TABLET PO PRN (18:58)
[2017-06-04] MEDS ORDERED: MAGNESIUM HYDROX 2400MG/30ML ORAL SUSPENSION 30 ML CUP PO PRN (18:58)
[2017-06-04] MEDS ORDERED: MENTHOL/PHENOL 1 EACH UD MM PRN (18:58)
[2017-06-04] MEDS ORDERED: guaiFENesin/D-METHORPHAN HB 10 ML UNIT-DOSE CUPS PO PRN (18:58)
[2017-06-04] MEDS ORDERED: chlordiazePOXIDE HCL 25 MG CAPSULE PO PRN (18:58)
[2017-06-04] MEDS ORDERED: MAGNESIUM CITRATE 300 ML BOTTLE PO PRN (18:58)
[2017-06-04] MEDS ORDERED: LOPERAMIDE HCL 2 MG CAPSULE PO PRN (18:58)
[2017-06-04] MEDS ORDERED: ACETAMINOPHEN 325 MG TABLET (FP) PO PRN (18:58)
[2017-06-04] MEDS ORDERED: MAG HYDROX/AL HYDROX/SIMETH 30 ML UNIT-DOSE CUP PO PRN (18:58)
[2017-06-04] MEDS ORDERED: IBUPROFEN 400 MG TABLET (FP) PO PRN (18:58)
[2017-06-04] MEDS ORDERED: HYDROCHLOROTHIAZIDE 25 MG TABLET (FP) PO SCH ×2 (19:15)
[2017-06-04] MEDS ORDERED: ENALAPRIL MALEATE 10 MG TABLET (FP) PO SCH (19:15)
[2017-06-04] MEDS: METOPROLOL SUCCINATE 25 MG TAB.SR.24H (FP) PO SCH (20:16)
[2017-06-04] MEDS: TRIAMTERENE AND HCTZ - 37.5 MG/25 MG CAPSULE PO SCH (20:17)
[2017-06-04] MEDS: THIAMINE HCL 100 MG TABLET (FP) PO SCH (22:46)
[2017-06-04] MEDS: chlordiazePOXIDE HCL 25 MG CAPSULE PO SCH (22:47)
[2017-06-04] MEDS: ATORVASTATIN CA 40 MG TABLET (FP) PO SCH (22:47)
[2017-06-04] MEDS: diphenhydrAMINE HCL 50 MG CAPSULE PO PRN (22:47)
[2017-06-04 23:13] LABS: PH,URINE 5.5 (5.0-8.0); URINE APPEARANCE CLEAR; URINE BILIRUBIN NEGATIVE (NEGATIVE); URINE BLOOD 2+ (NEGATIVE); URINE COLOR LT. YELLOW; URINE GLUCOSE (UA) NEGATIVE (NEGATIVE); URINE KETONE NEGATIVE (NEGATIVE); URINE NITRITE NEGATIVE (NEGATIVE); URINE UROBILINOGEN 0.2 mg/dL (0.2-1.0)
[2017-06-04 23:14] LABS: URINE PROTEIN 2+ (NEGATIVE)
[2017-06-04 23:31] LABS: URINE BACTERIA RARE /hpf (NONE SEEN); URINE HYALINE CAST 3 /lpf; URINE MUCUS RARE; URINE RBC <1 /hpf (0-3); URINE WBC 1 /hpf (3-5)
[2017-06-05] MEDS: chlordiazePOXIDE HCL 25 MG CAPSULE PO SCH ×4 (05:59→22:44)
[2017-06-05] MEDS ORDERED: cloNIDine HCL 0.1 MG TABLET PO ONE (06:16)
[2017-06-05 09:46] LABS: MCH 32.8 pg (25.7-33.7); MCHC 34.1 g/dl (32.0-36.0); MEAN CELL VOLUME 96.3 fl (80-96); MEAN PLT VOLUME 8.8 fl (7.5-11.1); PLATELET COUNT 257 K/MM3 (134-434); RDW 13.9 % (11.6-15.6); WHITE BLOOD COUNT 5.3 K/mm3 (4.0-10.0)
[2017-06-05 09:54] LABS: ALBUMIN 3.4 g/dl (3.4-5.0); ALK PHOS 83 U/L (45-117); ANION GAP 10 (8-16); BILIRUBIN,TOTAL 0.5 mg/dL (0.2-1.0); CALCIUM 8.8 mg/dL (8.5-10.1); CO2 26 mmol/L (21-32); CREATININE 1.1 mg/dL (0.55-1.02); GLUCOSE,RANDOM 89 mg/dL (74-106); SGOT/AST 39 U/L (15-37); SGPT/ALT 37 U/L (12-78); TOT PROT 7.1 g/dl (6.4-8.2)
[2017-06-05] MEDS: METOPROLOL SUCCINATE 25 MG TAB.SR.24H (FP) PO SCH (11:00)
[2017-06-05] MEDS: PRENATAL VITAMINS W/ FOLIC ACID TABLET (FP) PO SCH (11:00)
[2017-06-05] MEDS: TRIAMTERENE AND HCTZ - 37.5 MG/25 MG CAPSULE PO SCH ×2 (11:28→11:39)
--- NOTE | 2017-06-05 11:55 | PN ---
S CIWA - CIWA Score Nausea/Vomitin Muscle Tremors: 4-Moderate,w/Arms Extend Anxiety: 4-Mod. Anxious/Guarded Agitation: 4-Moderately Restless Paroxysmal Sweats: 3 Orientation: 0-Oriented Tacttile Disturbances: 1-Very Mild Itch/Numbness Auditory Disturbances: 0-None Visual Disturbances: 0-None Headache: 1-Very Mild CIWA-Ar Total Score: 20 BHS Progress Note (SOAP) Subjective: nausea, sweats, interrupted sleep, anxiety, tremors Objective: 06/05/17 11:54 Vital Signs - 8 hr 06/05/17 06/05/17 06/05/17 07:12 07:29 10:43 Temperature 97.3 F L 97.0 F L 97.9 F Pulse Rate 93 H 73 98 H Respiratory 20 16 16 Rate Blood Pressure 172/114 121/70 153/99 Laboratory Tests 06/04/17 06/05/17 06/05/17 18:30 07:00 07:00 WBC 5.3 RBC 3.20 L Hgb 10.5 L Hct 30.8 L MCV 96.3 H MCH 32.8 MCHC 34.1 RDW 13.9 Plt Count 257 MPV 8.8 D Sodium 141 Potassium 4.7 D Chloride 105 Carbon Dioxide 26 Anion Gap 10 BUN 15 D Creatinine 1.1 H Creat Clearance w eGFR 51.38 Random Glucose 89 Calcium 8.8 Total Bilirubin 0.5 AST 39 H D ALT 37 D Alkaline Phosphatase 83 Total Protein 7.1 Albumin 3.4 Urine Color Lt. yellow Urine Appearance Clear Urine pH 5.5 Urine Protein 2+ H Urine Glucose (UA) Negative Urine Ketones Negative Urine Blood 2+ H Urine Nitrite Negative Urine Bilirubin Negative Urine Urobilinogen 0.2 Urine RBC <1 Urine WBC 1 Ur Epithelial Cells Rare Urine Bacteria Rare Hyaline Casts 3 Urine Mucus Rare RPR Titer 06/05/17 07:00 WBC RBC Hgb Hct MCV MCH MCHC RDW Plt Count MPV Sodium Potassium Chloride Carbon Dioxide Anion Gap BUN Creatinine Creat Clearance w eGFR Random Glucose Calcium Total Bilirubin AST ALT Alkaline Phosphatase Total Protein Albumin Urine Color Urine Appearance Urine pH Urine Protein Urine Glucose (UA) Urine Ketones Urine Blood Urine Nitrite Urine Bilirubin Urine Urobilinogen Urine RBC Urine WBC Ur Epithelial Cells Urine Bacteria Hyaline Casts Urine Mucus RPR Titer Nonreactive Assessment: 06/05/17 11:54 withdrawal sx, anemia Plan: cont detox, fluids
--- NOTE | 2017-06-05 13:02 | EKG ---
Test Reason : Blood Pressure : / mmHG Vent. Rate : 086 BPM Atrial Rate : 086 BPM P-R Int : 170 ms QRS Dur : 082 ms QT Int : 394 ms P-R-T Axes : 048 002 049 degrees QTc Int : 471 ms NORMAL SINUS RHYTHM MODERATE VOLTAGE CRITERIA FOR LVH, MAY BE NORMAL VARIANT BORDERLINE ECG WHEN COMPARED WITH ECG OF 24-NOV-2016 14:57, NO SIGNIFICANT CHANGE WAS FOUND Confirmed by ELLIS JHONSON MD ([id number]) on 06/05/2017 1:01:51 PM Referred By: Parvez Esparza Confirmed By:ELLIS JOHNSON MD
--- NOTE | 2017-06-05 14:43 | CONSULT ---
[facility] Psychiatric Consult - Data Date of interview: 06/05/17 Admission source: [facility] Identifying data: Another admission to [facility] for this 56 y/o AA female seeking detox treatment on for alcohol dependence.Patient is , a mother of three,domiciled ([facility]),unemployed and supported on Public Assistance. Substance Abuse History: Discussed with the patient.Confirmed this report. Smoking Cessation. Smoking history: Never smoked. Have you smoked in the past 12 months: No. Hx Chewing Tobacco Use: No. Initiated information on smoking cessation: No. - Substance & Tx. History. Hx Alcohol Use: Yes. Hx Substance Use: No. Substance Use Type: Alcohol. Hx Substance Use Treatment: Yes (11/24-11/28 [facility]). - Substances Abused. Alcohol. Route: Oral. Frequency: Daily. Amount used: LIQUOR- 3 PINTS, BEER- 1 SIX PACK. Age of first use: 18. Date of Last Use: 06/04/17 Medical History: Bronchial asthma,hypertension and a history of uterine fibroids. Psychiatric History: Remote history of one psychiatric hospitalization at [facility] (several years ago).Diagnosed with Bipolar Disorder.Ms Kemp is currently followed at the [facility] in [facility].Prescribed zoloft and risperdal (doses not recalled).Adherence remains questionable.Patient denies history of suicide attempts. Physical/Sexual Abuse/Trauma History: Patient denies. Additional Comment: Urine Drug Screen Results: BZO-Benzodiazepines.Noted. Mental Status Exam - Mental Status Exam Alert and Oriented to: Time, Place, Person Cognitive Function: Good Patient Appearance: Well Groomed Mood: Hopeful, Euthymic Affect: Appropriate, Normal Range Patient Behavior: Appropriate, Cooperative Speech Pattern: Clear Voice Loudness: Normal Thought Process: Intact, Goal Oriented Thought Disorder: Not Present Hallucinations: Denies Suicidal Ideation: Denies Homicidal Ideation: Denies Insight/Judgement: Poor Sleep: Poorly, Difficulty falling asleep (wants trazodone) Appetite: Good Muscle strength/Tone: Normal Gait/Station: Normal Psychiatric Findings - Problem List ([place] 1, 2,3) (1) Alcohol dependence with withdrawal Current Visit: Yes Status: Acute Qualifiers: Complication of substance-induced condition: uncomplicated Qualified Code(s): F10.230 - Alcohol dependence with withdrawal, uncomplicated (2) Substance induced mood disorder Current Visit: Yes Status: Acute (3) Bipolar disorder Current Visit: Yes Status: Chronic Comment: History. (4) Essential hypertension Current Visit: Yes Status: Chronic (5) Asthma Current Visit: Yes Status: Chronic (6) Uterine fibroid Current Visit: No Status: Chronic Qualifiers: Uterine leiomyoma location: unspecified location Qualified Code(s): D25.9 - Leiomyoma of uterus, unspecified (7) Insomnia Current Visit: Yes Status: Acute - Initial Treatment Plan Initial Treatment Plan: Psychoeducation.Detoxification.Medications : zoloft 100 mg po daily (verified in recent pharmacy claims dated 05/01/17 + 05/04/17 at [facility]) + trazodone 50 mg po hs + risperdal 1 mg po hs.Side effects/benefits discussed with the patient.She agrees with this careplan.Observation.
[2017-06-05] MEDS: risperiDONE 1 MG TABLET (FP) PO SCH (22:44)
[2017-06-05] MEDS: traZODone HCL 50 MG TABLET (FP) PO SCH (22:45)
[2017-06-05] MEDS: THIAMINE HCL 100 MG TABLET (FP) PO SCH (22:45)
[2017-06-05] MEDS: ATORVASTATIN CA 40 MG TABLET (FP) PO SCH (22:45)
[2017-06-05] MEDS: diphenhydrAMINE HCL 50 MG CAPSULE PO PRN (22:45)
[2017-06-06] MEDS: chlordiazePOXIDE HCL 25 MG CAPSULE PO SCH ×3 (05:59→18:01)
[2017-06-06] MEDS: PRENATAL VITAMINS W/ FOLIC ACID TABLET (FP) PO SCH (10:37)
[2017-06-06] MEDS: SERTRALINE HCL 50 MG TABLET (FP) PO SCH (10:37)
[2017-06-06] MEDS: METOPROLOL SUCCINATE 25 MG TAB.SR.24H (FP) PO SCH (10:37)
[2017-06-06] MEDS: TRIAMTERENE AND HCTZ - 37.5 MG/25 MG CAPSULE PO SCH (10:37)
--- NOTE | 2017-06-06 12:35 | PN ---
S CIWA - CIWA Score Nausea/Vomitin-No Nausea/No Vomiting Muscle Tremors: 4-Moderate,w/Arms Extend Anxiety: 3 Agitation: 4-Moderately Restless Paroxysmal Sweats: 3 Orientation: 0-Oriented Tacttile Disturbances: 0-None Auditory Disturbances: 0-None Visual Disturbances: 0-None Headache: 0-None Present CIWA-Ar Total Score: 14 BHS Progress Note (SOAP) Subjective: sweats shakes interrupted sleep body aches Objective: 06/06/17 12:35 Vital Signs Temperature 97.9 F 06/06/17 10:00 Pulse Rate 105 H 06/06/17 10:00 Respiratory Rate 18 06/06/17 10:00 Blood Pressure 136/102 06/06/17 10:00 O2 Sat by Pulse Oximetry (%) Laboratory Tests 06/04/17 06/05/17 06/05/17 18:30 07:00 07:00 WBC 5.3 RBC 3.20 L Hgb 10.5 L Hct 30.8 L MCV 96.3 H MCH 32.8 MCHC 34.1 RDW 13.9 Plt Count 257 MPV 8.8 D Sodium 141 Potassium 4.7 D Chloride 105 Carbon Dioxide 26 Anion Gap 10 BUN 15 D Creatinine 1.1 H Creat Clearance w eGFR 51.38 Random Glucose 89 Calcium 8.8 Total Bilirubin 0.5 AST 39 H D ALT 37 D Alkaline Phosphatase 83 Total Protein 7.1 Albumin 3.4 Urine Color Lt. yellow Urine Appearance Clear Urine pH 5.5 Ur Specific [place] 1.025 Urine Protein 2+ H Urine Glucose (UA) Negative Urine Ketones Negative Urine Blood 2+ H Urine Nitrite Negative Urine Bilirubin Negative Urine Urobilinogen 0.2 Urine RBC <1 Urine WBC 1 Ur Epithelial Cells Rare Urine Bacteria Rare Hyaline Casts 3 Urine Mucus Rare RPR Titer 06/05/17 07:00 WBC RBC Hgb Hct MCV MCH MCHC RDW Plt Count MPV Sodium Potassium Chloride Carbon Dioxide Anion Gap BUN Creatinine Creat Clearance w eGFR Random Glucose Calcium Total Bilirubin AST ALT Alkaline Phosphatase Total Protein Albumin Urine Color Urine Appearance Urine pH Ur Specific [place] Urine Protein Urine Glucose (UA) Urine Ketones Urine Blood Urine Nitrite Urine Bilirubin Urine Urobilinogen Urine RBC Urine WBC Ur Epithelial Cells Urine Bacteria Hyaline Casts Urine Mucus RPR Titer Nonreactive awake/alert ambulating no acute distress Assessment: 06/06/17 12:35 withdrawal sx Plan: increase fluids continue detox
[2017-06-06] MEDS: traZODone HCL 50 MG TABLET (FP) PO SCH (22:34)
[2017-06-06] MEDS: risperiDONE 1 MG TABLET (FP) PO SCH (22:34)
[2017-06-06] MEDS: diphenhydrAMINE HCL 50 MG CAPSULE PO PRN (22:34)
[2017-06-06] MEDS: THIAMINE HCL 100 MG TABLET (FP) PO SCH (22:34)
[2017-06-06] MEDS: chlordiazePOXIDE 5 MG CAPSULE PO SCH (22:34)
[2017-06-06] MEDS: ATORVASTATIN CA 40 MG TABLET (FP) PO SCH (22:34)
[2017-06-07] MEDS: chlordiazePOXIDE 5 MG CAPSULE PO SCH ×3 (06:27→17:23)
[2017-06-07] MEDS: TRIAMTERENE AND HCTZ - 37.5 MG/25 MG CAPSULE PO SCH (10:43)
[2017-06-07] MEDS: SERTRALINE HCL 50 MG TABLET (FP) PO SCH (10:43)
[2017-06-07] MEDS: METOPROLOL SUCCINATE 25 MG TAB.SR.24H (FP) PO SCH (10:43)
[2017-06-07] MEDS: PRENATAL VITAMINS W/ FOLIC ACID TABLET (FP) PO SCH (10:43)
--- NOTE | 2017-06-07 11:41 | PN ---
BHS Progress Note (SOAP) Subjective: feeling much better anxiety Objective: 06/07/17 11:40 Vital Signs Temperature 98.2 F 06/07/17 10:07 Pulse Rate 99 H 06/07/17 10:07 Respiratory Rate 18 06/07/17 10:07 Blood Pressure 117/86 06/07/17 10:07 O2 Sat by Pulse Oximetry (%) awake/alert ambulating no acute distress Assessment: 06/07/17 11:41 mild withdrawal sx Plan: continue detox d/c in am
[2017-06-07] MEDS: traZODone HCL 50 MG TABLET (FP) PO SCH (22:31)
[2017-06-07] MEDS: risperiDONE 1 MG TABLET (FP) PO SCH (22:31)
[2017-06-07] MEDS: chlordiazePOXIDE HCL 10 MG CAPSULE PO SCH (22:31)
[2017-06-07] MEDS: diphenhydrAMINE HCL 50 MG CAPSULE PO PRN (22:31)
[2017-06-07] MEDS: ATORVASTATIN CA 40 MG TABLET (FP) PO SCH (22:31)
[2017-06-07] MEDS: THIAMINE HCL 100 MG TABLET (FP) PO SCH (22:32)
[2017-06-08] MEDS: chlordiazePOXIDE HCL 10 MG CAPSULE PO SCH ×2 (06:15→10:58)
[2017-06-08] MEDS: METOPROLOL SUCCINATE 25 MG TAB.SR.24H (FP) PO SCH (09:20)
[2017-06-08] MEDS: TRIAMTERENE AND HCTZ - 37.5 MG/25 MG CAPSULE PO SCH (09:20)
[2017-06-08] MEDS: SERTRALINE HCL 50 MG TABLET (FP) PO SCH (09:20)
[2017-06-08] MEDS: PRENATAL VITAMINS W/ FOLIC ACID TABLET (FP) PO SCH (09:20)
--- NOTE | 2017-06-08 09:28 | DS ---
[facility] Detox Discharge Summary Admission Date: 06/04/17 Discharge Date: 06/08/17 - History Present History: Alcohol Dependence - Physical Exam Results Vital Signs: Vital Signs Temperature 97.9 F 06/08/17 06:00 Pulse Rate 77 06/08/17 06:00 Respiratory Rate 18 06/08/17 06:00 Blood Pressure 104/72 06/08/17 06:00 O2 Sat by Pulse Oximetry (%) - Treatment Hospital Course: Detox Protocol Followed, Detoxed Safely, Responded well, Discharged Condition Good, Rehab Referral Accepted - Medication Discharge Medications: Ambulatory Orders Enalapril Maleate [Vasotec -] 20 mg PO BID #60 tablet 07/05/16 Hctz 25Mg/Triamterene [Dyazide 25/37.5 -] 1 cap PO DAILY #30 capsule 07/05/16 Trazodone HCl [Desyrel -] 50 mg PO HS #30 tablet 07/05/16 Escitalopram Oxalate [Lexapro -] 10 mg PO DAILY #30 tablet 11/24/16 Risperidone [Risperdal] 1 mg PO DAILY #30 tablet 11/24/16 - Diagnosis (1) Alcohol dependence with withdrawal Current Visit: Yes Status: Chronic Qualifiers: Complication of substance-induced condition: uncomplicated Qualified Code(s): F10.230 - Alcohol dependence with withdrawal, uncomplicated (2) Asthma Current Visit: Yes Status: Chronic Qualifiers: Asthma severity: mild intermittent (3) Essential hypertension Current Visit: Yes Status: Chronic (4) Uterine fibroid Current Visit: No Status: Chronic Qualifiers: Uterine leiomyoma location: unspecified location Qualified Code(s): D25.9 - Leiomyoma of uterus, unspecified - AMA Did Patient Leave Against Medical Advice: No
[2017-06-08 09:47] VITALS: BP 148/85; PULSE 91; TEMP 97.5
== END 2017-06-08 12:15 | disposition other institution (70) | DRG 775 ==
LOC: YASAS 14:20 → Y6N 17:36
PROVIDERS: ADMIT Internal Medicine; ATTEND Internal Medicine
PROC: HZ2ZZZZ Detoxification Services for Substance Abuse Treatment (ICD-10-PCS; principal; 2017-06-04)
DX: F10.230 Alcohol dependence with withdrawal, uncomplicated (principal); F31.9 Bipolar disorder, unspecified; F19.24 Other psychoactive substance dependence with psychoactive substance-induced mood disorder; G47.00 Insomnia, unspecified; I10 Essential (primary) hypertension; D25.9 Leiomyoma of uterus, unspecified
CPT/HCPCS: 36415; 80053; 81003; 81015; 85027; 86593; 93005; 93010; J2794

== ENCOUNTER 2017-06-08 12:23 | Inpatient (IN) | payer OTHER ==
--- NOTE | 2017-06-08 15:56 | HP ---
Psychiatrist Admission - Data Date of interview: 06/08/17 Admission source: [facility] Identifying data: This is the second admission to [address] [place] [address] for this 56 years old female mother of 2 grown children ,resides in care home,supported by PA. Medical History: HTN,Uterine fibroid. Psychiatric History: Patient first contact with psychiatrist was about 9 years ago to address depression,anxiety,sleep walking.Reports no psychiatric admissions,only 1 ER visit due to depression.Patient was placed on Zoloft with some response.She was also on Risperidone,Seroquel but stopped due to side effects.She is attending [facility] in [place].Current medications: Zoloft 100 mg po daily,Risperidone 1 mg po hs and TRazodone 100 mg po hs. Physical/Sexual Abuse/Trauma History: denies Vital Signs: Vital Signs - 24 hr 06/08/17 13:00 Temperature 98.2 F Pulse Rate 90 Respiratory 18 Rate Blood Pressure 133/83 Allergies/Adverse Reactions: Allergies Allergy/AdvReac Type Severity Reaction Status Date / Time No Known Allergies Allergy Verified 06/04/17 17:28 Date of last physical exam: 06/08/17 Concur with the findings of this exam: Yes - Substance Abuse/Tx History Hx Alcohol Use: Yes (drinking since 15 yo,mostly beer ) Hx Substance Use: No Substance Use Type: Alcohol Hx Substance Use Treatment: Yes (completed this program in 2014) - Admission Criteria Previous failed treatment: Yes Poor recovery environment: Yes Comorbidities: Yes Lacks judgement: Yes Mental Status Exam - Mental Status Exam Alert and Oriented to: Time, Place, Person Cognitive Function: Grossly Intact Patient Appearance: Unkempt Mood: Sad Affect: Appropriate, Mood Congruent Patient Behavior: Appropriate, Cooperative Speech Pattern: Clear Voice Loudness: Normal Thought Process: Goal Oriented Thought Disorder: Being Controlled Hallucinations: Denies Suicidal Ideation: Denies Homicidal Ideation: Denies Insight/Judgement: Fair Sleep: Difficulty falling asleep Appetite: Good Muscle strength/Tone: Normal Gait/Station: Normal Psychiatric Findings - Problem List ([place] 1, 2,3) (1) Alcohol dependence Current Visit: Yes Status: Chronic (2) Substance induced mood disorder Current Visit: Yes Status: Chronic (3) Bipolar disorder Current Visit: Yes Status: Chronic Comment: History. (4) Hypertension Current Visit: Yes Status: Chronic Qualifiers: Hypertension type: essential hypertension Qualified Code(s): I10 - Essential (primary) hypertension Comment: none compliance with medication - Initial Treatment Plan Initial Treatment Plan: Trazodone 50 mg po hs,Zoloft 100 mg po daily and Risperidone 1 mg po hs. Will monitor progress.
--- NOTE | 2017-06-08 16:05 | HP ---
[facility] Rehab Assess/Revision - Admission History Admitted to Rehab from: [facility] [place] Date of Admission to Rehab: 06/08/17 - Vital signs Vital Signs: Vital Signs Period Temp Pulse Resp BP Sys/Friedman Pulse Ox Last 24 Hr 98.2 F 90 18 133/83 - Findings Detox History & Physical reviewed: Yes Concur with findings: Yes Inpatient Rehab Admission - Initial Determination Are CD services needed?: Yes Free of communicable disease: Yes Not in need of hospitalization: Yes - Rehab Admission Criteria Previous failed treatment: Yes Poor recovery environment: Yes Comorbidities: Yes Lacks judgement: Yes Patient is meeting Inpatient Rehab admission criteria:: Yes
[2017-06-08] MEDS ORDERED: MAGNESIUM CITRATE 300 ML BOTTLE PO PRN (16:07)
[2017-06-08] MEDS ORDERED: P-EPHED 60MG/TRIPROLIDI 2.5MG TABLET PO PRN (16:07)
[2017-06-08] MEDS ORDERED: ACETAMINOPHEN 325 MG TABLET (FP) PO PRN (16:07)
[2017-06-08] MEDS ORDERED: guaiFENesin/D-METHORPHAN HB 10 ML UNIT-DOSE CUPS PO PRN (16:07)
[2017-06-08] MEDS ORDERED: MENTHOL/PHENOL 1 EACH UD MM PRN (16:07)
[2017-06-08] MEDS ORDERED: MAGNESIUM HYDROX 2400MG/30ML ORAL SUSPENSION 30 ML CUP PO PRN (16:07)
[2017-06-08] MEDS ORDERED: LOPERAMIDE HCL 2 MG CAPSULE PO PRN (16:07)
[2017-06-08] MEDS ORDERED: MAG HYDROX/AL HYDROX/SIMETH 30 ML UNIT-DOSE CUP PO PRN (16:07)
[2017-06-08] MEDS ORDERED: IBUPROFEN 400 MG TABLET (FP) PO PRN (16:07)
[2017-06-08] MEDS: THIAMINE HCL 100 MG TABLET (FP) PO SCH (21:26)
[2017-06-08] MEDS: ENALAPRIL MALEATE 10 MG TABLET (FP) PO SCH (21:26)
[2017-06-08] MEDS: ATORVASTATIN CA 40 MG TABLET (FP) PO SCH (21:26)
[2017-06-08] MEDS: diphenhydrAMINE HCL 50 MG CAPSULE PO PRN (21:28)
[2017-06-09] MEDS ORDERED: PT OWN MED DRAWER 7, Y5N ONE (08:38)
[2017-06-09] MEDS: PRENATAL VITAMINS W/ FOLIC ACID TABLET (FP) PO SCH (09:48)
[2017-06-09] MEDS: METOPROLOL SUCCINATE 25 MG TAB.SR.24H (FP) PO SCH (10:52)
[2017-06-09] MEDS: ENALAPRIL MALEATE 10 MG TABLET (FP) PO SCH ×2 (10:52→21:13)
[2017-06-09] MEDS: TRIAMTERENE AND HCTZ - 37.5 MG/25 MG CAPSULE PO SCH (10:52)
[2017-06-09] MEDS: SERTRALINE HCL 50 MG TABLET (FP) PO SCH (11:11)
[2017-06-09] MEDS: THIAMINE HCL 100 MG TABLET (FP) PO SCH (21:13)
[2017-06-09] MEDS: traZODone HCL 50 MG TABLET (FP) PO SCH (21:14)
[2017-06-09] MEDS: ATORVASTATIN CA 40 MG TABLET (FP) PO SCH (21:14)
[2017-06-09] MEDS: risperiDONE 1 MG TABLET (FP) PO SCH (21:15)
[2017-06-10] MEDS ORDERED: PT OWN MED DRAWER 7, Y5N ONE ×2 (08:36→23:09)
[2017-06-10] MEDS: PRENATAL VITAMINS W/ FOLIC ACID TABLET (FP) PO SCH (09:36)
[2017-06-10] MEDS: SERTRALINE HCL 50 MG TABLET (FP) PO SCH (09:36)
[2017-06-10] MEDS: METOPROLOL SUCCINATE 25 MG TAB.SR.24H (FP) PO SCH (09:37)
[2017-06-10] MEDS: ENALAPRIL MALEATE 10 MG TABLET (FP) PO SCH ×2 (09:37→21:14)
[2017-06-10] MEDS: TRIAMTERENE AND HCTZ - 37.5 MG/25 MG CAPSULE PO SCH (09:37)
[2017-06-10] MEDS: THIAMINE HCL 100 MG TABLET (FP) PO SCH (21:14)
[2017-06-10] MEDS: ATORVASTATIN CA 40 MG TABLET (FP) PO SCH (21:14)
[2017-06-10] MEDS: traZODone HCL 50 MG TABLET (FP) PO SCH (21:14)
[2017-06-10] MEDS: risperiDONE 1 MG TABLET (FP) PO SCH (21:14)
[2017-06-10] MEDS: diphenhydrAMINE HCL 50 MG CAPSULE PO PRN (21:16)
[2017-06-11] MEDS ORDERED: PT OWN MED DRAWER 7, Y5N ONE (08:31)
[2017-06-11] MEDS: SERTRALINE HCL 50 MG TABLET (FP) PO SCH (09:49)
[2017-06-11] MEDS: METOPROLOL SUCCINATE 25 MG TAB.SR.24H (FP) PO SCH (09:49)
[2017-06-11] MEDS: TRIAMTERENE AND HCTZ - 37.5 MG/25 MG CAPSULE PO SCH (09:49)
[2017-06-11] MEDS: PRENATAL VITAMINS W/ FOLIC ACID TABLET (FP) PO SCH (09:49)
[2017-06-11] MEDS: ENALAPRIL MALEATE 10 MG TABLET (FP) PO SCH ×2 (09:51→21:14)
[2017-06-11] MEDS: traZODone HCL 50 MG TABLET (FP) PO SCH (21:14)
[2017-06-11] MEDS: ATORVASTATIN CA 40 MG TABLET (FP) PO SCH (21:14)
[2017-06-11] MEDS: risperiDONE 1 MG TABLET (FP) PO SCH (21:14)
[2017-06-11] MEDS: THIAMINE HCL 100 MG TABLET (FP) PO SCH (21:14)
[2017-06-11] MEDS: diphenhydrAMINE HCL 50 MG CAPSULE PO PRN (21:15)
[2017-06-12] MEDS ORDERED: PT OWN MED DRAWER 7, Y5N ONE (08:30)
[2017-06-12] MEDS: PRENATAL VITAMINS W/ FOLIC ACID TABLET (FP) PO SCH (09:47)
[2017-06-12] MEDS: ENALAPRIL MALEATE 10 MG TABLET (FP) PO SCH ×2 (09:47→21:52)
[2017-06-12] MEDS: METOPROLOL SUCCINATE 25 MG TAB.SR.24H (FP) PO SCH (09:47)
[2017-06-12] MEDS: SERTRALINE HCL 50 MG TABLET (FP) PO SCH (09:47)
[2017-06-12] MEDS: ASPIRIN COATED 81 MG TABLET.EC PO SCH (10:54)
[2017-06-12] MEDS: TRIAMTERENE AND HCTZ - 37.5 MG/25 MG CAPSULE PO SCH (10:54)
[2017-06-12] MEDS: risperiDONE 1 MG TABLET (FP) PO SCH (21:52)
[2017-06-12] MEDS: ATORVASTATIN CA 40 MG TABLET (FP) PO SCH (21:52)
[2017-06-12] MEDS: traZODone HCL 50 MG TABLET (FP) PO SCH (21:52)
[2017-06-12] MEDS: THIAMINE HCL 100 MG TABLET (FP) PO SCH (21:52)
[2017-06-12] MEDS: diphenhydrAMINE HCL 50 MG CAPSULE PO PRN (21:53)
[2017-06-13] MEDS ORDERED: PT OWN MED DRAWER 7, Y5N ONE ×2 (08:26→21:04)
[2017-06-13] MEDS: SERTRALINE HCL 50 MG TABLET (FP) PO SCH (09:53)
[2017-06-13] MEDS: PRENATAL VITAMINS W/ FOLIC ACID TABLET (FP) PO SCH (09:54)
[2017-06-13] MEDS: TRIAMTERENE AND HCTZ - 37.5 MG/25 MG CAPSULE PO SCH (09:54)
[2017-06-13] MEDS: ASPIRIN COATED 81 MG TABLET.EC PO SCH (09:54)
[2017-06-13] MEDS: METOPROLOL SUCCINATE 25 MG TAB.SR.24H (FP) PO SCH (09:54)
[2017-06-13] MEDS: ENALAPRIL MALEATE 10 MG TABLET (FP) PO SCH ×2 (09:54→21:09)
--- NOTE | 2017-06-13 14:46 | PN ---
BHS Progress Note Note: Pt. c/o ecchymosis on legs, she's on asa 81mg daily P : cbc,bmp pt/ptt d/c asa
[2017-06-13] MEDS: THIAMINE HCL 100 MG TABLET (FP) PO SCH (21:08)
[2017-06-13] MEDS: risperiDONE 1 MG TABLET (FP) PO SCH (21:09)
[2017-06-13] MEDS: ATORVASTATIN CA 40 MG TABLET (FP) PO SCH (21:09)
[2017-06-13] MEDS: diphenhydrAMINE HCL 50 MG CAPSULE PO PRN (21:09)
[2017-06-13] MEDS: traZODone HCL 50 MG TABLET (FP) PO SCH (21:09)
[2017-06-14] MEDS ORDERED: PT OWN MED DRAWER 7, Y5N ONE ×2 (08:34→17:34)
[2017-06-14] MEDS: METOPROLOL SUCCINATE 25 MG TAB.SR.24H (FP) PO SCH (09:42)
[2017-06-14] MEDS: TRIAMTERENE AND HCTZ - 37.5 MG/25 MG CAPSULE PO SCH (09:42)
[2017-06-14] MEDS: PRENATAL VITAMINS W/ FOLIC ACID TABLET (FP) PO SCH (09:43)
[2017-06-14] MEDS: ENALAPRIL MALEATE 10 MG TABLET (FP) PO SCH ×2 (09:43→21:15)
[2017-06-14] MEDS: SERTRALINE HCL 50 MG TABLET (FP) PO SCH (09:43)
[2017-06-14 10:19] LABS: MCHC 32.8 g/dl (32.0-36.0); MEAN CELL VOLUME 97.5 fl (80-96); MEAN PLT VOLUME 9.9 fl (7.5-11.1); PLATELET COUNT 234 K/MM3 (134-434); WHITE BLOOD COUNT 6.9 K/mm3 (4.0-10.0)
[2017-06-14 10:33] LABS: INR 1.1 (0.82-1.09); PROTHROMBIN TIME (PATIENT) 12.1 SEC (9.98-11.88)
[2017-06-14 10:36] LABS: ACTIVATED PTT 31.3 SECONDS (26.9-34.4)
[2017-06-14 10:47] LABS: ANION GAP 9 (8-16); CALCIUM 9.8 mg/dL (8.5-10.1); CO2 27 mmol/L (21-32); CREATININE 1.1 mg/dL (0.55-1.02); GLUCOSE,RANDOM 88 mg/dL (74-106)
[2017-06-14] MEDS: FERROUS SO4 325 MG TABLET (FP) PO SCH (17:14)
[2017-06-14] MEDS: risperiDONE 1 MG TABLET (FP) PO SCH (21:15)
[2017-06-14] MEDS: ATORVASTATIN CA 40 MG TABLET (FP) PO SCH (21:15)
[2017-06-14] MEDS: traZODone HCL 50 MG TABLET (FP) PO SCH (21:15)
[2017-06-14] MEDS: diphenhydrAMINE HCL 50 MG CAPSULE PO PRN (21:15)
[2017-06-14] MEDS: THIAMINE HCL 100 MG TABLET (FP) PO SCH (21:15)
[2017-06-15] MEDS: FERROUS SO4 325 MG TABLET (FP) PO SCH ×2 (07:03→17:42)
[2017-06-15] MEDS ORDERED: PT OWN MED DRAWER 7, Y5N ONE (08:31)
[2017-06-15] MEDS: SERTRALINE HCL 50 MG TABLET (FP) PO SCH (09:48)
[2017-06-15] MEDS: ENALAPRIL MALEATE 10 MG TABLET (FP) PO SCH ×2 (09:48→21:12)
[2017-06-15] MEDS: PRENATAL VITAMINS W/ FOLIC ACID TABLET (FP) PO SCH (09:48)
[2017-06-15] MEDS: TRIAMTERENE AND HCTZ - 37.5 MG/25 MG CAPSULE PO SCH (09:48)
[2017-06-15] MEDS: METOPROLOL SUCCINATE 25 MG TAB.SR.24H (FP) PO SCH (09:55)
[2017-06-15] MEDS: risperiDONE 1 MG TABLET (FP) PO SCH (21:12)
[2017-06-15] MEDS: traZODone HCL 50 MG TABLET (FP) PO SCH (21:12)
[2017-06-15] MEDS: ATORVASTATIN CA 40 MG TABLET (FP) PO SCH (21:12)
[2017-06-15] MEDS: diphenhydrAMINE HCL 50 MG CAPSULE PO PRN (21:13)
[2017-06-15] MEDS: THIAMINE HCL 100 MG TABLET (FP) PO SCH (21:13)
[2017-06-16] MEDS: FERROUS SO4 325 MG TABLET (FP) PO SCH ×2 (07:01→17:34)
[2017-06-16] MEDS ORDERED: PT OWN MED DRAWER 7, Y5N ONE (08:02)
[2017-06-16] MEDS: TRIAMTERENE AND HCTZ - 37.5 MG/25 MG CAPSULE PO SCH (09:32)
[2017-06-16] MEDS: ENALAPRIL MALEATE 10 MG TABLET (FP) PO SCH ×2 (09:32→21:17)
[2017-06-16] MEDS: METOPROLOL SUCCINATE 25 MG TAB.SR.24H (FP) PO SCH (09:33)
[2017-06-16] MEDS: PRENATAL VITAMINS W/ FOLIC ACID TABLET (FP) PO SCH (09:33)
[2017-06-16] MEDS: SERTRALINE HCL 50 MG TABLET (FP) PO SCH (09:33)
[2017-06-16] MEDS: traZODone HCL 50 MG TABLET (FP) PO SCH (21:17)
[2017-06-16] MEDS: ATORVASTATIN CA 40 MG TABLET (FP) PO SCH (21:17)
[2017-06-16] MEDS: risperiDONE 1 MG TABLET (FP) PO SCH (21:17)
[2017-06-16] MEDS: THIAMINE HCL 100 MG TABLET (FP) PO SCH (21:18)
[2017-06-16] MEDS: diphenhydrAMINE HCL 50 MG CAPSULE PO PRN (21:18)
[2017-06-17] MEDS: FERROUS SO4 325 MG TABLET (FP) PO SCH ×2 (07:00→17:22)
[2017-06-17] MEDS ORDERED: PT OWN MED DRAWER 7, Y5N ONE (08:03)
[2017-06-17] MEDS: TRIAMTERENE AND HCTZ - 37.5 MG/25 MG CAPSULE PO SCH (09:56)
[2017-06-17] MEDS: PRENATAL VITAMINS W/ FOLIC ACID TABLET (FP) PO SCH (09:56)
[2017-06-17] MEDS: METOPROLOL SUCCINATE 25 MG TAB.SR.24H (FP) PO SCH (09:56)
[2017-06-17] MEDS: SERTRALINE HCL 50 MG TABLET (FP) PO SCH (09:56)
[2017-06-17] MEDS: ENALAPRIL MALEATE 10 MG TABLET (FP) PO SCH ×2 (09:57→21:13)
[2017-06-17] MEDS: ATORVASTATIN CA 40 MG TABLET (FP) PO SCH (21:14)
[2017-06-17] MEDS: traZODone HCL 50 MG TABLET (FP) PO SCH (21:14)
[2017-06-17] MEDS: diphenhydrAMINE HCL 50 MG CAPSULE PO PRN (21:14)
[2017-06-17] MEDS: risperiDONE 1 MG TABLET (FP) PO SCH (21:14)
[2017-06-17] MEDS: THIAMINE HCL 100 MG TABLET (FP) PO SCH (21:14)
[2017-06-18] MEDS: FERROUS SO4 325 MG TABLET (FP) PO SCH ×2 (07:07→17:49)
[2017-06-18] MEDS ORDERED: PT OWN MED DRAWER 7, Y5N ONE (08:27)
[2017-06-18] MEDS: SERTRALINE HCL 50 MG TABLET (FP) PO SCH (09:56)
[2017-06-18] MEDS: ENALAPRIL MALEATE 10 MG TABLET (FP) PO SCH ×2 (09:56→21:19)
[2017-06-18] MEDS: METOPROLOL SUCCINATE 25 MG TAB.SR.24H (FP) PO SCH (09:56)
[2017-06-18] MEDS: PRENATAL VITAMINS W/ FOLIC ACID TABLET (FP) PO SCH (09:56)
[2017-06-18] MEDS: TRIAMTERENE AND HCTZ - 37.5 MG/25 MG CAPSULE PO SCH (09:57)
[2017-06-18] MEDS: THIAMINE HCL 100 MG TABLET (FP) PO SCH (21:19)
[2017-06-18] MEDS: ATORVASTATIN CA 40 MG TABLET (FP) PO SCH (21:20)
[2017-06-18] MEDS: traZODone HCL 50 MG TABLET (FP) PO SCH (21:20)
[2017-06-18] MEDS: risperiDONE 1 MG TABLET (FP) PO SCH (21:20)
[2017-06-18] MEDS: diphenhydrAMINE HCL 50 MG CAPSULE PO PRN (21:21)
[2017-06-19] MEDS: FERROUS SO4 325 MG TABLET (FP) PO SCH ×2 (07:34→16:48)
[2017-06-19] MEDS: TRIAMTERENE AND HCTZ - 37.5 MG/25 MG CAPSULE PO SCH (09:58)
[2017-06-19] MEDS: PRENATAL VITAMINS W/ FOLIC ACID TABLET (FP) PO SCH (09:58)
[2017-06-19] MEDS: SERTRALINE HCL 50 MG TABLET (FP) PO SCH (09:58)
[2017-06-19] MEDS: METOPROLOL SUCCINATE 25 MG TAB.SR.24H (FP) PO SCH (09:58)
[2017-06-19] MEDS: ENALAPRIL MALEATE 10 MG TABLET (FP) PO SCH ×2 (09:59→21:24)
[2017-06-19] MEDS ORDERED: PT OWN MED DRAWER 7, Y5N ONE (11:01)
[2017-06-19] MEDS ORDERED: ATORVASTATIN CA 20 MG TABLET (FP) ONE (19:44)
[2017-06-19] MEDS: ATORVASTATIN CA 40 MG TABLET (FP) PO SCH (21:22)
[2017-06-19] MEDS: risperiDONE 1 MG TABLET (FP) PO SCH (21:22)
[2017-06-19] MEDS: traZODone HCL 50 MG TABLET (FP) PO SCH (21:22)
[2017-06-19] MEDS: THIAMINE HCL 100 MG TABLET (FP) PO SCH (21:23)
[2017-06-19] MEDS: diphenhydrAMINE HCL 50 MG CAPSULE PO PRN (21:23)
[2017-06-20] MEDS: FERROUS SO4 325 MG TABLET (FP) PO SCH ×2 (07:22→16:56)
[2017-06-20] MEDS: TRIAMTERENE AND HCTZ - 37.5 MG/25 MG CAPSULE PO SCH (10:09)
[2017-06-20] MEDS: ENALAPRIL MALEATE 10 MG TABLET (FP) PO SCH ×2 (10:10→21:10)
[2017-06-20] MEDS: PRENATAL VITAMINS W/ FOLIC ACID TABLET (FP) PO SCH (10:10)
[2017-06-20] MEDS: METOPROLOL SUCCINATE 25 MG TAB.SR.24H (FP) PO SCH (10:10)
[2017-06-20] MEDS: SERTRALINE HCL 50 MG TABLET (FP) PO SCH (10:10)
[2017-06-20] MEDS: traZODone HCL 50 MG TABLET (FP) PO SCH (21:10)
[2017-06-20] MEDS: ATORVASTATIN CA 40 MG TABLET (FP) PO SCH (21:10)
[2017-06-20] MEDS: THIAMINE HCL 100 MG TABLET (FP) PO SCH (21:10)
[2017-06-20] MEDS: risperiDONE 1 MG TABLET (FP) PO SCH (21:10)
[2017-06-21] MEDS: FERROUS SO4 325 MG TABLET (FP) PO SCH ×2 (07:43→16:43)
[2017-06-21] MEDS: ENALAPRIL MALEATE 10 MG TABLET (FP) PO SCH ×2 (10:00→21:03)
[2017-06-21] MEDS: METOPROLOL SUCCINATE 25 MG TAB.SR.24H (FP) PO SCH (10:01)
[2017-06-21] MEDS: SERTRALINE HCL 50 MG TABLET (FP) PO SCH (10:01)
[2017-06-21] MEDS: PRENATAL VITAMINS W/ FOLIC ACID TABLET (FP) PO SCH (10:01)
[2017-06-21] MEDS ORDERED: PT OWN MED DRAWER 7, Y5N ONE (10:02)
[2017-06-21] MEDS: TRIAMTERENE AND HCTZ - 37.5 MG/25 MG CAPSULE PO SCH (10:02)
[2017-06-21] MEDS: ATORVASTATIN CA 40 MG TABLET (FP) PO SCH (21:03)
[2017-06-21] MEDS: traZODone HCL 50 MG TABLET (FP) PO SCH (21:03)
[2017-06-21] MEDS: risperiDONE 1 MG TABLET (FP) PO SCH (21:03)
[2017-06-21] MEDS: diphenhydrAMINE HCL 50 MG CAPSULE PO PRN (21:03)
[2017-06-21] MEDS: THIAMINE HCL 100 MG TABLET (FP) PO SCH (21:03)
[2017-06-22 07:00] VITALS: TEMP 98
[2017-06-22] MEDS: FERROUS SO4 325 MG TABLET (FP) PO SCH (07:22)
[2017-06-22] MEDS ORDERED: PT OWN MED DRAWER 7, Y5N ONE (08:17)
--- NOTE | 2017-06-22 08:56 | PN ---
Psychiatric Progress Note Vital Signs: Vital Signs Period Temp Pulse Resp BP Sys/Friedman Pulse Ox Last 24 Hr 98 F 77-93 16-18 121-134/81-86 Date of Session: 06/22/17 Chief Complaint:: Discharge visit HPI: Patient addressed alcohol dependence comorbid with Bipolar disorder. ROS: HTN Current Medications: Active Medications Generic Name Dose Route Start Last Admin Trade Name Freq PRN Reason Stop Dose Admin Acetaminophen 650 mg 06/08/17 16:07 06/20/17 06:27 Tylenol - PO 650 mg Q4H PRN Administration FEVER OR PAIN Al Hydroxide/Mg Hydroxide 30 ml 06/08/17 16:07 Mylanta Oral Suspension - PO Q6H PRN DYSPEPSIA Atorvastatin Calcium 40 mg 06/08/17 22:00 06/21/17 21:03 Lipitor - PO 40 mg HS ALISSA Administration Diphenhydramine HCl 50 mg 06/08/17 16:07 06/21/17 21:03 Benadryl - PO 50 mg HSMR1 PRN Administration FOR ITCHING Enalapril Maleate 20 mg 06/08/17 22:00 06/21/17 21:03 Vasotec - PO 20 mg BID ALISSA Administration Eucalyptus/Menthol/Phenol/Sorbitol 1 each 06/08/17 16:07 Cepastat Lozenge - MM Q4H PRN SORE THROAT Ferrous Sulfate 325 mg 06/14/17 17:30 06/22/17 07:22 Feosol - PO 325 mg BIDWM ALISSA Administration Guaifenesin 10 ml 06/08/17 16:07 Robitussin Dm - PO Q6H PRN COUGH Ibuprofen 400 mg 06/08/17 16:07 Motrin - PO Q6H PRN PAIN Loperamide HCl 4 mg 06/08/17 16:07 Imodium - PO Q6H PRN DIARRHEA Magnesium Hydroxide 30 ml 06/08/17 16:07 06/20/17 17:57 Milk Of Magnesia - PO 30 ml DAILY PRN Administration CONSTIPATION Metoprolol Succinate 25 mg 06/09/17 10:00 06/21/17 10:01 Toprol Xl - PO 25 mg DAILY ALISSA Administration Multivit/Folic Acid/Iron 1 tab 06/09/17 10:00 06/21/17 10:01 Vitamins (Sjr) - PO 1 tab DAILY ALISSA Administration Pseudoephedrine/Triprolidine 1 combo 06/08/17 16:07 Actifed - PO TID PRN NASAL CONGESTION Risperidone 1 mg 06/09/17 22:00 06/21/17 21:03 Risperdal - PO 1 mg HS ALISSA Administration Sertraline HCl 100 mg 06/09/17 10:45 06/21/17 10:01 Zoloft - PO 100 mg DAILY ALISSA Administration Thiamine HCl 100 mg 06/08/17 22:00 06/21/17 21:03 Vitamin B1 - PO 100 mg HS ALISSA Administration Trazodone HCl 50 mg 06/09/17 22:00 06/21/17 21:03 Desyrel - PO 50 mg HS ALISSA Administration Triamterene/HCTZ 1 cap 06/09/17 10:00 06/21/17 10:02 Dyazide 25/37.5mg PO 1 cap DAILY ALISSA Administration Current Side Effect: No Lab tests ordered: No Lab tests reviewed: Yes Provider note:: Patient completed this program today.She has met her treatment goals and will continue to addres her issues on outpatient basis at [facility].Patient reports finding that Risperidone 1 mg po hs,Zoloft 100 mg po daily and Trazodone 50 mg po hs help to cope with mood swings,anxiety, insomnia.Scripts fro 30 days provided. Supportive therapy proivided focusing on relapse prevention. Patient is stable for discharge today. Total face to face time:: 30 Mental Status Exam - Mental Status Exam Alert and Oriented to: Time, Place, Person Cognitive Function: Grossly Intact Patient Appearance: Well Groomed Mood: Euthymic Affect: Mood Congruent Patient Behavior: Cooperative Speech Pattern: Clear Voice Loudness: Normal Thought Process: Goal Oriented Thought Disorder: Not Present Hallucinations: Denies Suicidal Ideation: Denies Homicidal Ideation: Denies Insight/Judgement: Fair Sleep: Fair Appetite: Good Muscle strength/Tone: Normal Gait/Station: Normal Psychiatric Treatment Plan - Problem List (2) Bipolar disorder Comment: History. (3) Hypertension Qualifiers: Hypertension type: essential hypertension Qualified Code(s): I10 - Essential (primary) hypertension Comment: none compliance with medication
[2017-06-22 09:25] VITALS: BP 130/90; PULSE 74
[2017-06-22] MEDS: SERTRALINE HCL 50 MG TABLET (FP) PO SCH (10:02)
[2017-06-22] MEDS: PRENATAL VITAMINS W/ FOLIC ACID TABLET (FP) PO SCH (10:02)
[2017-06-22] MEDS: ENALAPRIL MALEATE 10 MG TABLET (FP) PO SCH (10:02)
[2017-06-22] MEDS: METOPROLOL SUCCINATE 25 MG TAB.SR.24H (FP) PO SCH (10:02)
[2017-06-22] MEDS: TRIAMTERENE AND HCTZ - 37.5 MG/25 MG CAPSULE PO SCH (10:02)
== END 2017-06-22 10:17 | disposition home or self-care (01) | DRG 772 ==
LOC: YASAS 12:23 → Y3E 12:25
PROVIDERS: ADMIT Psychiatry & Neurology Psychiatry; ATTEND Psychiatry & Neurology Psychiatry
PROC: HZ42ZZZ Group Counseling for Substance Abuse Treatment, Cognitive-Behavioral (ICD-10-PCS; principal; 2017-06-08)
DX: F10.20 Alcohol dependence, uncomplicated (principal); F19.24 Other psychoactive substance dependence with psychoactive substance-induced mood disorder; F31.9 Bipolar disorder, unspecified; I10 Essential (primary) hypertension
CPT/HCPCS: 36415; 80048; 85027; 85610; 85730; J2794

== ENCOUNTER 2019-06-19 11:15 | Inpatient (IN) | payer OTHER ==
[2019-06-19 12:37] VITALS: BMI 35.7
--- NOTE | 2019-06-19 13:29 | HP ---
COWS - Scale Resting Pulse: 0= [place] 80 or Below Sweatin= No chills or Flushing Restless Observation: 0= Sits Still Pupil Size: 0= Normal to Room Light Bone or Joint Aches: 0= None Runny Nose/ Eye Tearin= Nasal Congestion GI Upset > 30mins: 0= None Tremor Observation: 2= Slight Tremor Visible Yawning Observation: 0= None Anxiety or Irritability: 0= None Goose Flesh Skin: 0=Smooth Skin COWS Score: 3 CIWA Score Nausea/Vomitin-No Nausea/No Vomiting Muscle Tremors: 2 Anxiety: 0-No Anxiety, at Ease Agitation: 0-Normal Activity Paroxysmal Sweats: No Perspiration Orientation: 2-Disoriented Date<2 days Tacttile Disturbances: 0-None Auditory Disturbances: 0-None Visual Disturbances: 0-None Headache: 0-None Present CIWA-Ar Total Score: 4 - Admission Criteria OASAS Guidelines: Admission for Medically Managed Detox: Requires at least one of the followin. CIWA greater than 12 2. Seizures within the past 24 hours 3. Delirium tremens within the past 24 hours 4. Hallucinations within the past 24 hours 5. Acute intervention needed for co occurring medical disorder 6. Acute intervention needed for co occurring psychiatric disorder 7. Severe withdrawal that cannot be handled at a lower level of care (continued vomiting, continued diarrhea, abnormal vital signs) requiring intravenous medication and/or fluids 8. Admission ROS [facility] Chief Complaint: "I am here for rehab" Allergies/Adverse Reactions: Allergies Allergy/AdvReac Type Severity Reaction Status Date / Time No Known Allergies Allergy Verified 06/19/19 12:06 History of Present Illness: 58 year old female with a history of hypertension, atrial fibrillation on xarelto and heroin abuse (on [facility] of [facility]) presents for evaluation to begin rehab for heroin abuse. Reports that she wants to get clean because she is tired of doing this at her age. Heroin Use: last used yesterday (7 bags), uses it every day, has not recently withdrawn as she is on 50mg of methadone daily (started 2-3 weeks ago), snorts heroin, does not inject, never had a seizure from heroin use or withdrawal Cocaine Use: last used cocaine 1 week ago, uses infrequently Alcohol: drinks 1+ pints of vodka every day, last drank yesterday (1 pint), has had withdrawal tremors from alcohol before, has never had a seizure Cigarettes: 1 pack per day, started 3 months ago Psychiatric: depression COWs: 3 CIWA: 4 Allergies: none Surgery: none Family: lives [facility], a mental health setting Home Medications Medication Instructions Recorded Atorvastatin Calcium [Lipitor] 40 mg PO DAILY 06/08/17 Metoprolol Succinate [Toprol Xl -] 50 mg PO BID 06/08/17 Sertraline HCl [Zoloft -] 25 mg PO DAILY 06/08/17 Amlodipine Besylate [Norvasc -] 5 mg PO DAILY 06/19/19 Lisinopril/Hydrochlorothiazide 1 each PO DAILY 06/19/19 [Lisinopril-Hctz 20-25 mg Tab] Multivit-Min/Iron/Folic/Lutein 1 each PO DAILY 06/19/19 [Centrum Silver Women Tablet] Risperidone [Risperdal] 2 mg PO DAILY 06/19/19 Rivaroxaban [Xarelto -] 20 mg PO HS 06/19/19 Thiamine HCl [Vitamin B-1] 100 mg PO DAILY 06/19/19 Topiramate 50 mg PO DAILY 06/19/19 Exam Limitations: No Limitations - Ebola screening Have you traveled outside of the country in the last 21 days: No Have you had contact with anyone from an Ebola affected area: No - Review of Systems Constitutional: No Symptoms Reported EENT: reports: No Symptoms Reported, Nose Congestion Respiratory: reports: Shortness of Breath Cardiac: reports: No Symptoms Reported GI: reports: No Symptoms Reported : reports: No Symptoms Reported Musculoskeletal: reports: Back Pain Integumentary: reports: No Symptoms Reported Neuro: reports: No Symptoms reported Endocrine: reports: No Symptoms Reported Hematology: reports: No Symptoms Reported Psychiatric: reports: Judgement Intact, Mood/Affect Appropiate, Orientated x3, Depressed Patient History - Patient Medical History Hx Anemia: No Hx Asthma: No Hx Chronic Obstructive Pulmonary Disease (COPD): No Hx Cancer: No Hx Cardiac Disorders: No Hx Congestive Heart Failure: No Hx Hypertension: Yes (On medication) Hx Hypercholesterolemia: No Hx Pacemaker: No HX Cerebrovascular Accident: No Hx Seizures: No Hx Dementia: No Hx Diabetes: No Hx Gastrointestinal Disorders: No Hx Liver Disease: No Hx Genitourinary Disorders: No Hx Sexually Transmitted Disorders: No Hx Renal Disease (ESRD): No Hx Thyroid Disease: No Hx Human Immunodeficiency Virus (HIV): No (LAST 2016 NEGATIVE) Hx Hepatitis C: No Hx Depression: Yes Hx Suicide Attempt: No Hx Bipolar Disorder: Yes (ON MED) Hx Schizophrenia: No - Patient Surgical History Past Surgical History: Yes Hx Neurologic Surgery: No Hx Cataract Extraction: No Hx Cardiac Surgery: No Hx Lung Surgery: No Hx Breast Surgery: No Hx Breast Biopsy: No Hx Abdominal Surgery: No Hx Appendectomy: No Hx Cholecystectomy: No Hx Genitourinary Surgery: No Hx Section: No Hx Orthopedic Surgery: No Hx Hysterectomy: No Other Surgical History: Uterine fibroid removal 2012 Anesthesia Reaction: No - PPD History Date: 11/26/16 Results: 0mm - Reproductive History Last Menstrual Period: 12/02/16 - Smoking Cessation Smoking history: Never smoked Have you smoked in the past 12 months: No Hx Chewing Tobacco Use: No - Substances abused Heroin Substance route: Inhalation Frequency: Daily Amount used: 3 bags Age of first use: 58 Date of last use: 06/18/19 Admission Physical Exam S - Vital Signs Vital Signs: Vital Signs - 24 hr 06/19/19 12:29 Temperature 97.0 F L Pulse Rate 64 Respiratory 18 Rate Blood Pressure 118/72 - Physical General Appearance: Yes: No Apparent Distress, Nourished, Appropriately Dressed HEENTM: Yes: EOMI, Normocephalic, Pharynx Normal, Tm's normal Respiratory: Yes: Chest Non-Tender, Normal Breath Sounds Neck: Yes: Within Normal Limits Breast: Yes: Breast Exam Deferred Cardiology: Yes: Regular Rhythm, Regular Rate, Edema, Systolic Murmur Abdominal: Yes: Normal Bowel Sounds, Non Tender, Flat Back: Yes: Normal Inspection Musculoskeletal: Yes: full range of Motion Extremities: Yes: Normal Capillary Refill, Normal Range of Motion, Pedal Edema, Swelling Neurological: Yes: payroll assistant II-XII NML intact, Fully Oriented, Alert, Motor Strength 5/5, Depressed Affect - Diagnostic (1) Atrial fibrillation Current Visit: Yes Status: Acute (2) Heroin abuse Current Visit: Yes Status: Acute (3) Alcohol dependence Current Visit: No Status: Chronic Qualifiers: Substance use status: uncomplicated Qualified Code(s): F10.20 - Alcohol dependence, uncomplicated (4) Essential hypertension Current Visit: No Status: Chronic Breathalyzer - Breathalyzer Breathalyzer: 0 Urine Drug Screen - Test Device Lot number: [id number] Expiration date: 02/21/21 - Control Is test valid?: Yes - Results Drug screen NEGATIVE: No Urine drug screen results: MAYI-Cocaine, MOP-Opiates, MTD-Methadone Inpatient Rehab Admission - Rehab Decision to Admit Inpatient rehab admission?: Yes - Initial Determination Are CD services needed?: Yes Free of communicable disease: Yes Not in need of hospitalization: Yes - Rehab Admission Criteria Previous failed treatment: Yes Poor recovery environment: No Comorbidities: No Lacks judgement: No Patient is meeting Inpatient Rehab admission criteria:: Yes
[2019-06-19] MEDS ORDERED: MENTHOL/PHENOL 1 EACH UD MM PRN (13:52)
[2019-06-19] MEDS ORDERED: IBUPROFEN 400 MG TABLET (FP) PO PRN (13:52)
[2019-06-19] MEDS ORDERED: P-EPHED 60MG/TRIPROLIDI 2.5MG TABLET PO PRN (13:52)
[2019-06-19] MEDS ORDERED: MAGNESIUM CITRATE 300 ML BOTTLE PO PRN (13:52)
[2019-06-19] MEDS ORDERED: MAG HYDROX/AL HYDROX/SIMETH 30 ML UNIT-DOSE CUP PO PRN (13:52)
[2019-06-19] MEDS ORDERED: guaiFENesin 200 MG/10 ML 10 ML UNIT-DOSE CUPS PO PRN (13:52)
[2019-06-19] MEDS ORDERED: LOPERAMIDE HCL 2 MG CAPSULE PO PRN (13:52)
[2019-06-19] MEDS ORDERED: ACETAMINOPHEN 325 MG TABLET (FP) PO PRN (13:52)
[2019-06-19] MEDS ORDERED: MAGNESIUM HYDROX 2400MG/30ML ORAL SUSPENSION 30 ML CUP PO PRN (13:52)
[2019-06-19] MEDS ORDERED: PATIENT'S OWN MEDICATION (NON-FORMULARY) (Lisinopril/Hydrochlorothiazide [Lisinopril-Hctz PO SCH (14:00)
--- NOTE | 2019-06-19 14:12 | PN ---
Teaching Attending Note Name of Resident: Collin Mcelroy ATTENDING PHYSICIAN STATEMENT I saw and evaluated the patient. I reviewed the resident's note and discussed the case with the resident. I agree with the resident's findings and plan as documented. SUBJECTIVE: 58 y.o. female w/ opioid, cocaine and etoh use , reports was referred by [facility] 2/2 continued use , has been in MMTP x 1 month current daily dose 50 mg latest taken today, cocaine - reports latest use 1 week ago , etoh - reports 1 " nip " / day ,previously states 1 pint/ day , denies w/d seizures, blackouts or tremors , reports she has decreased intake of etoh since starting methadone . tobacco : 1 ppd PMHX : HTN , atrial fibrillation on xarelto Psychiatric: depression CIWA: 4 OBJECTIVE: wnwd , obese , ambulating w/ walker , NAD Vital Signs - 24 hr 06/19/19 12:29 Temperature 97.0 F L Pulse Rate 64 Respiratory 18 Rate Blood Pressure 118/72 ASSESSMENT AND PLAN: Opioid dependence on agonist therapy Alcohol use - unreliable historian , low CIWA score, denies w/d symptoms at this time . Nicotine dependence - smoking cessation counselling .
[2019-06-19 17:08] LABS: HEMATOCRIT 31.4 % (32.4-45.2); HEMOGLOBIN 10.2 GM/dL (10.7-15.3); MCH 31.8 pg (25.7-33.7); MCHC 32.5 g/dl (32.0-36.0); MEAN PLT VOLUME 10.4 fl (7.5-11.1); PLATELET COUNT 219 K/MM3 (134-434); RDW 14.5 % (11.6-15.6); WHITE BLOOD COUNT 8.9 K/mm3 (4.0-10.0)
[2019-06-19 17:16] LABS: ALBUMIN 3.9 g/dl (3.4-5.0); BILIRUBIN,TOTAL 0.3 mg/dL (0.2-1); BLOOD UREA NITROGEN 38.4 mg/dL (7-18); CALCIUM 9.7 mg/dL (8.5-10.1); CREATININE 1.5 mg/dL (0.55-1.3); POTASSIUM 3.8 mmol/L (3.5-5.1); TOT PROT 8.3 g/dl (6.4-8.2)
[2019-06-19] MEDS: LISINOPRIL 20 MG TABLET (FP) PO SCH (17:26)
[2019-06-19] MEDS: RIVAROXABAN 20 MG TABLET PO SCH (17:26)
[2019-06-19] MEDS: ATORVASTATIN CA 40 MG TABLET (FP) PO SCH (17:28)
[2019-06-19] MEDS: HYDROCHLOROTHIAZIDE 25 MG TABLET (FP) PO SCH (17:28)
[2019-06-19] MEDS: amLODIPine BESYLATE 5 MG TABLET (FP) PO SCH (17:28)
[2019-06-19] MEDS: THIAMINE HCL 100 MG TABLET (FP) PO SCH (21:24)
[2019-06-19] MEDS ORDERED: PT OWN MED DRAWER 7, Y5N ONE (21:24)
[2019-06-19] MEDS: MELATONIN 5 MG TABLETS PO PRN (21:24)
[2019-06-20] MEDS ORDERED: METHADONE HCL 10 MG TABLET PO SCH (06:00)
[2019-06-20] MEDS ORDERED: METHADONE HCL 40 MG DISPERSABLE TABLET ONE (07:00)
[2019-06-20] MEDS ORDERED: METHADONE HCL 10 MG TABLET ONE (07:00)
[2019-06-20] MEDS: METHADONE 40 MG, METHADONE 10 MG PO SCH (07:12)
--- NOTE | 2019-06-20 10:01 | PN ---
[facility] Progress Note Note: Lab review: Laboratory Tests 06/19/19 06/19/19 06/19/19 14:25 14:25 14:25 WBC 8.9 RBC 3.20 L Hgb 10.2 L Hct 31.4 L MCV 98.0 H MCH 31.8 MCHC 32.5 RDW 14.5 Plt Count 219 MPV 10.4 Sodium 140 Potassium 3.8 Chloride 103 Carbon Dioxide 29 Anion Gap 7 L BUN 38.4 H Creatinine 1.5 H Est GFR (CKD-EPI)AfAm 44.05 Est GFR (CKD-EPI)NonAf 38.01 Random Glucose 86 Calcium 9.7 Total Bilirubin 0.3 AST 46 H ALT 26 Alkaline Phosphatase 104 Total Protein 8.3 H Albumin 3.9 RPR Titer Nonreactive A/P Hx of chronic Anemia pt had been on Feosol for Anemia in the past. Start Feosol 325 mg po bid today
[2019-06-20] MEDS: LISINOPRIL 20 MG TABLET (FP) PO SCH (10:04)
[2019-06-20] MEDS: PRENATAL VITAMINS W/ FOLIC ACID TABLET (FP) PO SCH (10:04)
[2019-06-20] MEDS: amLODIPine BESYLATE 5 MG TABLET (FP) PO SCH (10:04)
[2019-06-20] MEDS: HYDROCHLOROTHIAZIDE 25 MG TABLET (FP) PO SCH (10:04)
[2019-06-20] MEDS: ATORVASTATIN CA 40 MG TABLET (FP) PO SCH (10:04)
[2019-06-20] MEDS: THIAMINE HCL 100 MG TABLET (FP) PO SCH ×2 (10:07→21:33)
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
[2019-06-20] MEDS: FERROUS SO4 325 MG TABLET (FP) PO SCH ×2 (11:06→21:31)
[2019-06-20] MEDS: RIVAROXABAN 20 MG TABLET PO SCH (17:04)
[2019-06-20] MEDS ORDERED: PT OWN MED DRAWER 7, Y5N ONE ×3 (19:50→21:40)
[2019-06-20] MEDS: risperiDONE 0.5 MG TABLET (FP) PO SCH (21:33)
[2019-06-20] MEDS: MELATONIN 5 MG TABLETS PO PRN (21:33)
[2019-06-20 23:55] LABS: HYALINE CASTS 1 /lpf (0-8); URINE APPEARANCE CLEAR; URINE BACTERIA 41.1 /hpf (NEGATIVE); URINE BILIRUBIN NEGATIVE (NEGATIVE); URINE COLOR YELLOW; URINE GLUCOSE (UA) NEGATIVE (NEGATIVE); URINE KETONE NEGATIVE (NEGATIVE); URINE LEUK ESTERASE TRACE (NEGATIVE); URINE NITRITE NEGATIVE (NEGATIVE); URINE PROTEIN NEGATIVE (NEGATIVE); URINE RBC 1 /hpf (0-4); URINE UROBILINOGEN 0.2 mg/dL (0.2-1.0); URINE WBC 7 /hpf (0-5)
[2019-06-21] MEDS ORDERED: METHADONE HCL 10 MG TABLET ONE (06:49)
[2019-06-21] MEDS ORDERED: METHADONE HCL 40 MG DISPERSABLE TABLET ONE (06:49)
[2019-06-21] MEDS: METHADONE 40 MG, METHADONE 10 MG PO SCH (06:50)
[2019-06-21] MEDS ORDERED: PT OWN MED DRAWER 7, Y5N ONE ×2 (09:16→19:54)
[2019-06-21] MEDS: amLODIPine BESYLATE 5 MG TABLET (FP) PO SCH (10:04)
[2019-06-21] MEDS: PRENATAL VITAMINS W/ FOLIC ACID TABLET (FP) PO SCH (10:04)
[2019-06-21] MEDS: HYDROCHLOROTHIAZIDE 25 MG TABLET (FP) PO SCH (10:04)
[2019-06-21] MEDS: risperiDONE 0.5 MG TABLET (FP) PO SCH ×2 (10:04→22:14)
[2019-06-21] MEDS: ATORVASTATIN CA 40 MG TABLET (FP) PO SCH (10:04)
[2019-06-21] MEDS: LISINOPRIL 20 MG TABLET (FP) PO SCH (10:04)
[2019-06-21] MEDS: FERROUS SO4 325 MG TABLET (FP) PO SCH ×2 (10:04→22:12)
[2019-06-21] MEDS: SERTRALINE HCL 25 MG TABLET (FP) PO SCH (10:05)
[2019-06-21] MEDS: THIAMINE HCL 100 MG TABLET (FP) PO SCH (10:06)
[2019-06-21] MEDS: RIVAROXABAN 20 MG TABLET PO SCH (18:47)
[2019-06-22] MEDS ORDERED: METHADONE HCL 10 MG TABLET ONE (06:03)
[2019-06-22] MEDS ORDERED: METHADONE HCL 40 MG DISPERSABLE TABLET ONE (06:03)
[2019-06-22] MEDS: METHADONE 40 MG, METHADONE 10 MG PO SCH (06:04)
[2019-06-22] MEDS: risperiDONE 0.5 MG TABLET (FP) PO SCH ×2 (10:05→21:49)
[2019-06-22] MEDS: SERTRALINE HCL 25 MG TABLET (FP) PO SCH (10:05)
[2019-06-22] MEDS: amLODIPine BESYLATE 5 MG TABLET (FP) PO SCH (10:06)
[2019-06-22] MEDS: ATORVASTATIN CA 40 MG TABLET (FP) PO SCH (10:06)
[2019-06-22] MEDS: HYDROCHLOROTHIAZIDE 25 MG TABLET (FP) PO SCH (10:06)
[2019-06-22] MEDS: PRENATAL VITAMINS W/ FOLIC ACID TABLET (FP) PO SCH (10:06)
[2019-06-22] MEDS: FERROUS SO4 325 MG TABLET (FP) PO SCH ×2 (10:06→21:48)
[2019-06-22] MEDS: THIAMINE HCL 100 MG TABLET (FP) PO SCH (10:06)
[2019-06-22] MEDS: LISINOPRIL 20 MG TABLET (FP) PO SCH (10:07)
[2019-06-22] MEDS: RIVAROXABAN 20 MG TABLET PO SCH (17:17)
[2019-06-22] MEDS: MELATONIN 5 MG TABLETS PO PRN (21:50)
[2019-06-23] MEDS: METHADONE 40 MG, METHADONE 10 MG PO SCH (07:24)
[2019-06-23] MEDS ORDERED: METHADONE HCL 40 MG DISPERSABLE TABLET ONE (07:24)
[2019-06-23] MEDS ORDERED: METHADONE HCL 10 MG TABLET ONE (07:24)
[2019-06-23] MEDS ORDERED: PT OWN MED DRAWER 7, Y5N ONE ×2 (08:53→21:20)
[2019-06-23] MEDS: HYDROCHLOROTHIAZIDE 25 MG TABLET (FP) PO SCH (10:02)
[2019-06-23] MEDS: ATORVASTATIN CA 40 MG TABLET (FP) PO SCH (10:02)
[2019-06-23] MEDS: FERROUS SO4 325 MG TABLET (FP) PO SCH ×2 (10:02→21:18)
[2019-06-23] MEDS: amLODIPine BESYLATE 5 MG TABLET (FP) PO SCH (10:02)
[2019-06-23] MEDS: PRENATAL VITAMINS W/ FOLIC ACID TABLET (FP) PO SCH (10:03)
[2019-06-23] MEDS: risperiDONE 0.5 MG TABLET (FP) PO SCH ×2 (10:03→21:20)
[2019-06-23] MEDS: LISINOPRIL 20 MG TABLET (FP) PO SCH (10:03)
[2019-06-23] MEDS: THIAMINE HCL 100 MG TABLET (FP) PO SCH (10:03)
[2019-06-23] MEDS: SERTRALINE HCL 25 MG TABLET (FP) PO SCH (10:04)
[2019-06-23 11:46] LABS: HEMATOCRIT 32.2 % (32.4-45.2); HEMOGLOBIN 10.7 GM/dL (10.7-15.3); MCH 31.9 pg (25.7-33.7); MCHC 33.4 g/dl (32.0-36.0); MEAN CELL VOLUME 95.5 fl (80-96); MEAN PLT VOLUME 10.7 fl (7.5-11.1); PLATELET COUNT 238 K/MM3 (134-434); RBC 3.37 M/mm3 (3.60-5.2); RDW 14.4 % (11.6-15.6); WHITE BLOOD COUNT 8.3 K/mm3 (4.0-10.0)
[2019-06-23 12:14] LABS: ALBUMIN 3.9 g/dl (3.4-5.0); BILIRUBIN,TOTAL 0.4 mg/dL (0.2-1); CREATININE 1.1 mg/dL (0.55-1.3); POTASSIUM 3.8 mmol/L (3.5-5.1); TOT PROT 8.2 g/dl (6.4-8.2)
[2019-06-23] MEDS: RIVAROXABAN 20 MG TABLET PO SCH (17:54)
[2019-06-24] MEDS ORDERED: METHADONE HCL 10 MG TABLET ONE (05:47)
[2019-06-24] MEDS ORDERED: METHADONE HCL 40 MG DISPERSABLE TABLET ONE (05:47)
[2019-06-24] MEDS: METHADONE 40 MG, METHADONE 10 MG PO SCH (06:38)
[2019-06-24] MEDS: ATORVASTATIN CA 40 MG TABLET (FP) PO SCH (09:58)
[2019-06-24] MEDS: PRENATAL VITAMINS W/ FOLIC ACID TABLET (FP) PO SCH (09:58)
[2019-06-24] MEDS: HYDROCHLOROTHIAZIDE 25 MG TABLET (FP) PO SCH (09:58)
[2019-06-24] MEDS: amLODIPine BESYLATE 5 MG TABLET (FP) PO SCH (09:58)
[2019-06-24] MEDS: FERROUS SO4 325 MG TABLET (FP) PO SCH ×2 (09:58→21:32)
[2019-06-24] MEDS: THIAMINE HCL 100 MG TABLET (FP) PO SCH (09:58)
[2019-06-24] MEDS: LISINOPRIL 20 MG TABLET (FP) PO SCH (09:58)
[2019-06-24] MEDS ORDERED: PT OWN MED DRAWER 7, Y5N ONE ×4 (10:00→19:34)
[2019-06-24] MEDS: SERTRALINE HCL 25 MG TABLET (FP) PO SCH (11:20)
[2019-06-24] MEDS: risperiDONE 0.5 MG TABLET (FP) PO SCH ×2 (11:20→21:31)
[2019-06-24 15:56] LABS: EPI CELLS 6.6 /HPF (0-5/HPF); HYALINE CASTS 4 /lpf (0-8); URINE APPEARANCE CLEAR; URINE BACTERIA 237.5 /hpf (NEGATIVE); URINE BILIRUBIN NEGATIVE (NEGATIVE); URINE COLOR YELLOW; URINE GLUCOSE (UA) NEGATIVE (NEGATIVE); URINE KETONE NEGATIVE (NEGATIVE); URINE LEUK ESTERASE 2+ (NEGATIVE); URINE NITRITE NEGATIVE (NEGATIVE); URINE PROTEIN TRACE (NEGATIVE); URINE RBC 1 /hpf (0-4); URINE UROBILINOGEN 0.2 mg/dL (0.2-1.0); URINE WBC 16 /hpf (0-5)
[2019-06-24] MEDS: RIVAROXABAN 20 MG TABLET PO SCH (16:43)
[2019-06-24] MEDS: MELATONIN 5 MG TABLETS PO PRN (21:31)
[2019-06-25] MEDS ORDERED: METHADONE HCL 10 MG TABLET ONE (03:23)
[2019-06-25] MEDS ORDERED: METHADONE HCL 40 MG DISPERSABLE TABLET ONE (03:23)
[2019-06-25] MEDS: METHADONE 40 MG, METHADONE 10 MG PO SCH (06:41)
[2019-06-25] MEDS: ATORVASTATIN CA 40 MG TABLET (FP) PO SCH (09:53)
[2019-06-25] MEDS: THIAMINE HCL 100 MG TABLET (FP) PO SCH (09:53)
[2019-06-25] MEDS: SERTRALINE HCL 25 MG TABLET (FP) PO SCH (09:53)
[2019-06-25] MEDS: PRENATAL VITAMINS W/ FOLIC ACID TABLET (FP) PO SCH (09:53)
[2019-06-25] MEDS: risperiDONE 0.5 MG TABLET (FP) PO SCH ×2 (09:54→21:37)
[2019-06-25] MEDS: FERROUS SO4 325 MG TABLET (FP) PO SCH ×2 (09:59→21:38)
[2019-06-25] MEDS: HYDROCHLOROTHIAZIDE 25 MG TABLET (FP) PO SCH (10:19)
[2019-06-25] MEDS: LISINOPRIL 20 MG TABLET (FP) PO SCH (10:19)
[2019-06-25] MEDS: amLODIPine BESYLATE 5 MG TABLET (FP) PO SCH (10:19)
--- NOTE | 2019-06-25 10:22 | PN ---
[facility] Progress Note Note: Nurse Yue called check writer to report on pt vital signs who is on BP meds. Plan:D/w nurse Hold meds at 10 a.m and repeat VS in 2 hrs D/w nurse Will re-evaluate pt at about 12 noon and medicate as per finding at this time.
[2019-06-25] MEDS: RIVAROXABAN 20 MG TABLET PO SCH (17:54)
[2019-06-25] MEDS ORDERED: PT OWN MED DRAWER 7, Y5N ONE (21:37)
[2019-06-25] MEDS: MELATONIN 5 MG TABLETS PO PRN (21:38)
[2019-06-26] MEDS ORDERED: METHADONE HCL 40 MG DISPERSABLE TABLET ONE (04:01)
[2019-06-26] MEDS ORDERED: METHADONE HCL 10 MG TABLET ONE (04:01)
[2019-06-26] MEDS: METHADONE 40 MG, METHADONE 10 MG PO SCH (06:40)
[2019-06-26] MEDS: SERTRALINE HCL 25 MG TABLET (FP) PO SCH (09:55)
[2019-06-26] MEDS: THIAMINE HCL 100 MG TABLET (FP) PO SCH (09:56)
[2019-06-26] MEDS: LISINOPRIL 20 MG TABLET (FP) PO SCH (09:56)
[2019-06-26] MEDS: risperiDONE 0.5 MG TABLET (FP) PO SCH ×2 (09:56→21:22)
[2019-06-26] MEDS: ATORVASTATIN CA 40 MG TABLET (FP) PO SCH (09:56)
[2019-06-26] MEDS: amLODIPine BESYLATE 5 MG TABLET (FP) PO SCH (09:56)
[2019-06-26] MEDS: PRENATAL VITAMINS W/ FOLIC ACID TABLET (FP) PO SCH (09:56)
[2019-06-26] MEDS: HYDROCHLOROTHIAZIDE 25 MG TABLET (FP) PO SCH (09:56)
[2019-06-26] MEDS: FERROUS SO4 325 MG TABLET (FP) PO SCH ×2 (09:56→21:21)
[2019-06-26] MEDS: RIVAROXABAN 20 MG TABLET PO SCH (17:33)
[2019-06-26] MEDS ORDERED: PT OWN MED DRAWER 7, Y5N ONE (19:45)
[2019-06-26] MEDS: MELATONIN 5 MG TABLETS PO PRN (21:21)
[2019-06-27] MEDS ORDERED: METHADONE HCL 10 MG TABLET ONE (05:42)
[2019-06-27] MEDS ORDERED: METHADONE HCL 40 MG DISPERSABLE TABLET ONE (05:43)
[2019-06-27] MEDS ORDERED: METHADONE HCL 10 MG TABLET PO SCH (06:00)
[2019-06-27] MEDS: METHADONE 40 MG, METHADONE 10 MG PO SCH (06:21)
[2019-06-27] MEDS ORDERED: PT OWN MED DRAWER 7, Y5N ONE ×2 (08:26→09:56)
--- NOTE | 2019-06-27 09:29 | PN ---
Psychiatric Progress Note Vital Signs: Vital Signs Period Temp Pulse Resp BP Sys/Friedman Pulse Ox Last 24 Hr 97.7 F-97.7 F 52-60 16-18 109-147/72-86 Date of Session: 06/27/19 Chief Complaint:: " I feel irritable and am having difficulty sleeping." HPI: Patient admitted to for opiate dependence. Patient reports insomnia and mild mood swings. ROS: Patient is coherent, alert + oriented X3. Current Medications: Active Medications Generic Name Dose Route Start Last Admin Trade Name Freq PRN Reason Stop Dose Admin Acetaminophen 650 mg 06/19/19 13:52 Tylenol - PO Q4H PRN FEVER Al Hydroxide/Mg Hydroxide 30 ml 06/19/19 13:52 Mylanta Oral Suspension - PO Q6H PRN DYSPEPSIA Amlodipine Besylate 5 mg 06/19/19 14:00 06/26/19 09:56 Norvasc - PO 5 mg DAILY ALISSA Administration Atorvastatin Calcium 40 mg 06/19/19 14:00 06/26/19 09:56 Lipitor - PO 40 mg DAILY ALISSA Administration Eucalyptus/Menthol/Phenol/Sorbitol 1 each 06/19/19 13:52 Cepastat Lozenge - MM Q4H PRN SORE THROAT Ferrous Sulfate 325 mg 06/20/19 10:30 06/26/19 21:21 Feosol - PO 325 mg BID ALISSA Administration Guaifenesin 10 ml 06/19/19 13:52 Robitussin - PO Q6H PRN COUGH Hydrochlorothiazide 25 mg 06/19/19 15:35 06/26/19 09:56 Hctz - PO 25 mg DAILY ALISSA Administration Lisinopril 20 mg 06/19/19 15:35 06/26/19 09:56 Prinivil PO 20 mg DAILY ALISSA Administration Loperamide HCl 4 mg 06/19/19 13:52 Imodium - PO Q6H PRN DIARRHEA Magnesium Citrate 300 ml 06/19/19 13:52 Citroma - PO Q48H PRN CONSTIPATION Magnesium Hydroxide 30 ml 06/19/19 13:52 06/25/19 17:54 Milk Of Magnesia - PO 30 ml DAILY PRN Administration CONSTIPATION Melatonin 5 mg 06/19/19 22:00 06/26/19 21:21 Melatonin PO 5 mg HS PRN Administration INSOMNIA Methadone HCl 40 mg/ Methadone 50 mg 06/27/19 06:00 06/27/19 06:21 HCl 10 mg PO 07/03/19 05:59 50 mg DAILY@0600 ALISSA Administration Metoprolol Succinate 50 mg 06/19/19 15:30 06/26/19 21:21 Toprol Xl - PO 50 mg BID ALISSA Administration Multivit/Folic Acid/Iron 1 tab 06/20/19 10:00 06/26/19 09:56 Vitamins (Sjr) - PO 1 tab DAILY ALISSA Administration Pseudoephedrine/Triprolidine 1 combo 06/19/19 13:52 Actifed - PO TID PRN NASAL CONGESTION Risperidone 0.5 mg 06/20/19 22:00 06/26/19 21:22 Risperdal - PO 0.5 mg BID ALISSA Administration Rivaroxaban 20 mg 06/19/19 17:30 06/26/19 17:33 Xarelto PO 20 mg DAILY@1730 ALISSA Administration Sertraline HCl 25 mg 06/21/19 10:00 06/26/19 09:55 Zoloft - PO 25 mg DAILY ALISSA Administration Thiamine HCl 100 mg 06/20/19 10:00 06/26/19 09:56 Vitamin B1 - PO 100 mg DAILY ALISSA Administration Medication(s) Change(s): Yes. Current Side Effect: No Lab tests ordered: No Lab tests reviewed: Yes Provider note:: Patient with a history of bipolar disorder and is today reporting difficulty sleeping, irritability, and mild mood swings. Patient is currently prescribed zoloft 25 + Risperdal 0.5mg BID. Before admission to rehab patient reported being off her medications for approximately 6 months. Medications to be adjusted. Will d/c risperdal 0.5mg. Will order risperdal 1mg BID for mood stabilization and Trazodone 25mg HS for insomnia. Benefits and side effects discussed. Verbal consent given. Total face to face time:: 25 Mental Status Exam - Mental Status Exam Alert and Oriented to: Time, Place, Person Cognitive Function: Good Patient Appearance: Well Groomed Mood: Euthymic Affect: Mood Congruent Patient Behavior: Cooperative Speech Pattern: Appropriate Voice Loudness: Normal Thought Process: Goal Oriented Thought Disorder: Not Present Hallucinations: Denies Suicidal Ideation: Denies Homicidal Ideation: Denies Insight/Judgement: Poor Sleep: Poorly Appetite: Fair Muscle strength/Tone: Normal Gait/Station: Normal Psychiatric Treatment Plan - Problem List (1) Heroin abuse Current Visit: Yes (2) Alcohol dependence Current Visit: Yes Qualifiers: Substance use status: uncomplicated Qualified Code(s): F10.20 - Alcohol dependence, uncomplicated (3) Bipolar disorder Current Visit: Yes Comment: History. (4) Methadone maintenance therapy patient Current Visit: Yes (5) Substance-induced sleep disorder Current Visit: Yes
[2019-06-27] MEDS: PRENATAL VITAMINS W/ FOLIC ACID TABLET (FP) PO SCH (09:53)
[2019-06-27] MEDS: LISINOPRIL 20 MG TABLET (FP) PO SCH (09:53)
[2019-06-27] MEDS: SERTRALINE HCL 25 MG TABLET (FP) PO SCH (09:53)
[2019-06-27] MEDS: HYDROCHLOROTHIAZIDE 25 MG TABLET (FP) PO SCH (09:53)
[2019-06-27] MEDS: THIAMINE HCL 100 MG TABLET (FP) PO SCH (09:53)
[2019-06-27] MEDS: FERROUS SO4 325 MG TABLET (FP) PO SCH ×2 (09:54→21:18)
[2019-06-27] MEDS: risperiDONE 0.5 MG TABLET (FP) PO SCH (09:56)
[2019-06-27] MEDS: ATORVASTATIN CA 40 MG TABLET (FP) PO SCH (09:56)
[2019-06-27] MEDS: amLODIPine BESYLATE 5 MG TABLET (FP) PO SCH (09:57)
[2019-06-27] MEDS: RIVAROXABAN 20 MG TABLET PO SCH (17:45)
[2019-06-27] MEDS ORDERED: risperiDONE 0.5 MG TABLET (FP) PO SCH (17:55)
[2019-06-27] MEDS: risperiDONE 1 MG TABLET (FP) PO SCH (21:20)
[2019-06-27] MEDS: traZODone HCL 50 MG TABLET (FP) PO SCH (21:21)
[2019-06-27] MEDS ORDERED: traZODone HCL 50 MG TABLET (FP) PO SCH (22:00)
[2019-06-28] MEDS ORDERED: METHADONE HCL 10 MG TABLET ONE (06:35)
[2019-06-28] MEDS ORDERED: METHADONE HCL 40 MG DISPERSABLE TABLET ONE (06:36)
[2019-06-28] MEDS: METHADONE 40 MG, METHADONE 10 MG PO SCH (06:46)
[2019-06-28] MEDS: HYDROCHLOROTHIAZIDE 25 MG TABLET (FP) PO SCH (09:49)
[2019-06-28] MEDS: amLODIPine BESYLATE 5 MG TABLET (FP) PO SCH (09:49)
[2019-06-28] MEDS: FERROUS SO4 325 MG TABLET (FP) PO SCH ×2 (09:49→21:22)
[2019-06-28] MEDS: ATORVASTATIN CA 40 MG TABLET (FP) PO SCH (09:49)
[2019-06-28] MEDS: risperiDONE 1 MG TABLET (FP) PO SCH ×2 (09:50→21:22)
[2019-06-28] MEDS: PRENATAL VITAMINS W/ FOLIC ACID TABLET (FP) PO SCH (09:50)
[2019-06-28] MEDS: LISINOPRIL 20 MG TABLET (FP) PO SCH (09:50)
[2019-06-28] MEDS: SERTRALINE HCL 25 MG TABLET (FP) PO SCH (09:51)
[2019-06-28] MEDS: THIAMINE HCL 100 MG TABLET (FP) PO SCH (09:51)
[2019-06-28] MEDS: RIVAROXABAN 20 MG TABLET PO SCH (17:34)
[2019-06-28] MEDS ORDERED: PT OWN MED DRAWER 7, Y5N ONE (19:38)
[2019-06-28] MEDS: MELATONIN 5 MG TABLETS PO PRN (21:23)
[2019-06-28] MEDS: traZODone HCL 50 MG TABLET (FP) PO SCH (21:23)
[2019-06-29] MEDS ORDERED: METHADONE HCL 10 MG TABLET ONE (06:49)
[2019-06-29] MEDS ORDERED: METHADONE HCL 40 MG DISPERSABLE TABLET ONE (06:49)
[2019-06-29] MEDS: METHADONE 40 MG, METHADONE 10 MG PO SCH (07:06)
[2019-06-29] MEDS: FERROUS SO4 325 MG TABLET (FP) PO SCH ×2 (10:04→21:21)
[2019-06-29] MEDS: ATORVASTATIN CA 40 MG TABLET (FP) PO SCH (10:04)
[2019-06-29] MEDS: amLODIPine BESYLATE 5 MG TABLET (FP) PO SCH (10:04)
[2019-06-29] MEDS: HYDROCHLOROTHIAZIDE 25 MG TABLET (FP) PO SCH (10:04)
[2019-06-29] MEDS: LISINOPRIL 20 MG TABLET (FP) PO SCH (10:05)
[2019-06-29] MEDS: risperiDONE 1 MG TABLET (FP) PO SCH ×2 (10:05→21:20)
[2019-06-29] MEDS: PRENATAL VITAMINS W/ FOLIC ACID TABLET (FP) PO SCH (10:05)
[2019-06-29] MEDS: SERTRALINE HCL 25 MG TABLET (FP) PO SCH (10:05)
[2019-06-29] MEDS: THIAMINE HCL 100 MG TABLET (FP) PO SCH (10:05)
[2019-06-29] MEDS: RIVAROXABAN 20 MG TABLET PO SCH (16:44)
[2019-06-29] MEDS: traZODone HCL 50 MG TABLET (FP) PO SCH (21:19)
[2019-06-29] MEDS: MELATONIN 5 MG TABLETS PO PRN (21:21)
[2019-06-30] MEDS ORDERED: METHADONE HCL 10 MG TABLET ONE (04:17)
[2019-06-30] MEDS ORDERED: METHADONE HCL 40 MG DISPERSABLE TABLET ONE (04:17)
[2019-06-30] MEDS: METHADONE 40 MG, METHADONE 10 MG PO SCH (06:46)
[2019-06-30] MEDS: amLODIPine BESYLATE 5 MG TABLET (FP) PO SCH (10:13)
[2019-06-30] MEDS: LISINOPRIL 20 MG TABLET (FP) PO SCH (10:13)
[2019-06-30] MEDS: PRENATAL VITAMINS W/ FOLIC ACID TABLET (FP) PO SCH (10:13)
[2019-06-30] MEDS: THIAMINE HCL 100 MG TABLET (FP) PO SCH (10:13)
[2019-06-30] MEDS: HYDROCHLOROTHIAZIDE 25 MG TABLET (FP) PO SCH (10:13)
[2019-06-30] MEDS: FERROUS SO4 325 MG TABLET (FP) PO SCH ×2 (10:13→21:08)
[2019-06-30] MEDS: ATORVASTATIN CA 40 MG TABLET (FP) PO SCH (10:13)
[2019-06-30] MEDS: risperiDONE 1 MG TABLET (FP) PO SCH ×2 (10:14→21:08)
[2019-06-30] MEDS: SERTRALINE HCL 25 MG TABLET (FP) PO SCH (11:00)
[2019-06-30] MEDS: RIVAROXABAN 20 MG TABLET PO SCH (17:00)
[2019-06-30] MEDS ORDERED: PT OWN MED DRAWER 7, Y5N ONE (19:10)
[2019-06-30] MEDS: traZODone HCL 50 MG TABLET (FP) PO SCH (21:08)
[2019-06-30] MEDS: MELATONIN 5 MG TABLETS PO PRN (21:09)
[2019-07-01] MEDS ORDERED: METHADONE HCL 10 MG TABLET ONE (06:54)
[2019-07-01] MEDS ORDERED: METHADONE HCL 40 MG DISPERSABLE TABLET ONE (06:54)
[2019-07-01] MEDS: METHADONE 40 MG, METHADONE 10 MG PO SCH (06:55)
[2019-07-01] MEDS ORDERED: PT OWN MED DRAWER 7, Y5N ONE (09:08)
[2019-07-01] MEDS: FERROUS SO4 325 MG TABLET (FP) PO SCH ×2 (10:12→21:41)
[2019-07-01] MEDS: ATORVASTATIN CA 40 MG TABLET (FP) PO SCH (10:13)
[2019-07-01] MEDS: HYDROCHLOROTHIAZIDE 25 MG TABLET (FP) PO SCH (10:13)
[2019-07-01] MEDS: amLODIPine BESYLATE 5 MG TABLET (FP) PO SCH (10:13)
[2019-07-01] MEDS: PRENATAL VITAMINS W/ FOLIC ACID TABLET (FP) PO SCH (10:13)
[2019-07-01] MEDS: LISINOPRIL 20 MG TABLET (FP) PO SCH (10:14)
[2019-07-01] MEDS: SERTRALINE HCL 25 MG TABLET (FP) PO SCH (10:14)
[2019-07-01] MEDS: THIAMINE HCL 100 MG TABLET (FP) PO SCH (10:14)
[2019-07-01] MEDS: risperiDONE 1 MG TABLET (FP) PO SCH ×2 (10:14→21:41)
[2019-07-01] MEDS: RIVAROXABAN 20 MG TABLET PO SCH (18:01)
[2019-07-01] MEDS: traZODone HCL 50 MG TABLET (FP) PO SCH (21:40)
[2019-07-01] MEDS: MELATONIN 5 MG TABLETS PO PRN (21:42)
[2019-07-02] MEDS ORDERED: METHADONE HCL 10 MG TABLET ONE (04:10)
[2019-07-02] MEDS ORDERED: METHADONE HCL 40 MG DISPERSABLE TABLET ONE (04:11)
[2019-07-02] MEDS: METHADONE 40 MG, METHADONE 10 MG PO SCH (06:26)
[2019-07-02 07:21] VITALS: TEMP 97.6
[2019-07-02] MEDS ORDERED: METHADONE 40 MG, METHADONE 10 MG PO SCH (08:12)
[2019-07-02] MEDS: SERTRALINE HCL 25 MG TABLET (FP) PO SCH (10:08)
[2019-07-02] MEDS: PRENATAL VITAMINS W/ FOLIC ACID TABLET (FP) PO SCH (10:09)
[2019-07-02] MEDS: HYDROCHLOROTHIAZIDE 25 MG TABLET (FP) PO SCH (10:10)
[2019-07-02] MEDS: LISINOPRIL 20 MG TABLET (FP) PO SCH (10:10)
[2019-07-02] MEDS: FERROUS SO4 325 MG TABLET (FP) PO SCH ×2 (10:10→22:28)
[2019-07-02] MEDS: ATORVASTATIN CA 40 MG TABLET (FP) PO SCH (10:10)
[2019-07-02] MEDS: risperiDONE 1 MG TABLET (FP) PO SCH ×2 (10:10→22:23)
[2019-07-02] MEDS: THIAMINE HCL 100 MG TABLET (FP) PO SCH (10:11)
[2019-07-02] MEDS: amLODIPine BESYLATE 5 MG TABLET (FP) PO SCH (10:11)
[2019-07-02] MEDS: RIVAROXABAN 20 MG TABLET PO SCH (17:25)
[2019-07-02] MEDS: traZODone HCL 50 MG TABLET (FP) PO SCH (22:26)
[2019-07-03] MEDS ORDERED: METHADONE HCL 40 MG DISPERSABLE TABLET ONE (04:20)
[2019-07-03] MEDS ORDERED: METHADONE HCL 10 MG TABLET ONE (04:20)
--- NOTE | 2019-07-03 08:15 | DS ---
[facility] Rehab Discharge Summary - [facility] Rehab Discharge Summary Admission Date: 06/19/19 Discharge Date: 07/03/19 - History Present History: Alcohol dependence, MMTP, Opioid dependence Pertinent Past History: 58 year old female with a history of hypertension, atrial fibrillation on xarelto and heroin abuse (on [facility] of [facility]) Heroin Use: last used yesterday (7 bags), uses it every day, has not recently withdrawn as she is on 50mg of methadone daily (started 2-3 weeks ago), snorts heroin, does not inject, never had a seizure from heroin use or withdrawal Cocaine Use: last used cocaine 1 week prior to admission, uses infrequently Alcohol: drinks 1+ pints of vodka every day, last drank yesterday (1 pint), has had withdrawal tremors from alcohol before, has never had a seizure Cigarettes: 1 pack per day, started 3 months ago Psychiatric: depression Surgery: none Family: lives [facility], a mental health setting - Discharge Physical Exam Vital Signs: Vital Signs Temperature 97.6 F 07/03/19 07:14 Pulse Rate 65 07/03/19 07:14 Respiratory Rate 18 07/03/19 07:14 Blood Pressure 133/75 07/03/19 07:14 O2 Sat by Pulse Oximetry (%) Pertinent Admission Physical Exam Findings: Physical General Appearance: No Apparent Distress, HEENTM: EOMI, Normocephalic, Respiratory: clear. respirations easy and unlabored Neck: supple Cardiology: Yes: ABD: + Bowel Sounds, Non Tender, Flat Musculoskeletal:full range of Motion Neurological:wealth management director II-XII NML intact, Motor Strength 5/5, - Treatment Discharge Condition: Outpatient referral accepted (Patient has referral to [facility] ; medically stable for discharge.) Hospital Course: patient attended groups, met 1:1 with counselor, was seen by psychiatric care, and was adherent to her treatment and medication regimen. - Medication Discharge Medications: Ambulatory Orders Sertraline HCl [Zoloft -] 25 mg PO DAILY 06/08/17 Risperidone [Risperdal] 2 mg PO DAILY 06/19/19 traZODone HCL [Trazodone HCl] 50 mg PO HS 06/27/19 Amlodipine Besylate [Norvasc -] 5 mg PO DAILY #14 tablet 07/03/19 Atorvastatin Calcium [Lipitor] 40 mg PO DAILY #14 tablet 07/03/19 Lisinopril/Hydrochlorothiazide [Lisinopril-Hctz 20-25 mg Tab] 1 each PO DAILY # 14 tablet 07/03/19 Metoprolol Succinate [Toprol XL -] 50 mg PO BID #20 tab.sr.24h 07/03/19 Multivit-Min/Iron/Folic/Lutein [Centrum Silver Women Tablet] 1 each PO DAILY # 14 tablet 07/03/19 Rivaroxaban [Xarelto -] 20 mg PO HS #14 tablet 07/03/19 Thiamine HCl [Vitamin B-1] 100 mg PO DAILY #14 tablet 07/03/19 Topiramate 50 mg PO DAILY #14 tablet 07/03/19 - Medication-Assisted Treatment (MAT) Medication-Assisted Treatment (MAT): No MAT Follow-up Referral: Continue MMTP at [facility]. - Discharge Instructions Diet, activity, other medical instructions: Diet: as tolerated Activity: as tolerated Other medical instructions: Please keep aftercare appointment at [facility] - Diagnosis (1) Heroin abuse Current Visit: Yes Status: Acute (2) Alcohol dependence Current Visit: Yes Status: Chronic Qualifiers: Substance use status: uncomplicated Qualified Code(s): F10.20 - Alcohol dependence, uncomplicated (3) Methadone maintenance therapy patient Current Visit: Yes Status: Chronic - Follow-up Referral Minutes to complete discharge: 20 - AMA Did Patient Leave Against Medical Advice: No
[2019-07-03] MEDS ORDERED: PT OWN MED DRAWER 7, Y5N ONE (08:25)
[2019-07-03] MEDS: PRENATAL VITAMINS W/ FOLIC ACID TABLET (FP) PO SCH (09:05)
[2019-07-03] MEDS: HYDROCHLOROTHIAZIDE 25 MG TABLET (FP) PO SCH (09:05)
[2019-07-03] MEDS: LISINOPRIL 20 MG TABLET (FP) PO SCH (09:05)
[2019-07-03] MEDS: FERROUS SO4 325 MG TABLET (FP) PO SCH (09:05)
[2019-07-03] MEDS: amLODIPine BESYLATE 5 MG TABLET (FP) PO SCH (09:05)
[2019-07-03] MEDS: SERTRALINE HCL 25 MG TABLET (FP) PO SCH (09:06)
[2019-07-03] MEDS: ATORVASTATIN CA 40 MG TABLET (FP) PO SCH (09:06)
[2019-07-03] MEDS: THIAMINE HCL 100 MG TABLET (FP) PO SCH (09:06)
[2019-07-03] MEDS: risperiDONE 1 MG TABLET (FP) PO SCH (09:06)
[2019-07-03 09:14] VITALS: BP 114/75; PULSE 63
== END 2019-07-03 09:18 | disposition home or self-care (01) | DRG 772 ==
LOC: YASAS 11:15 → Y3E 15:15
PROVIDERS: ADMIT Neuromusculoskeletal Medicine & OMM; ATTEND Neuromusculoskeletal Medicine & OMM
PROC: HZ42ZZZ Group Counseling for Substance Abuse Treatment, Cognitive-Behavioral (ICD-10-PCS; principal; 2019-06-19)
DX: F10.20 Alcohol dependence, uncomplicated (principal); F11.20 Opioid dependence, uncomplicated; F17.210 Nicotine dependence, cigarettes, uncomplicated; F19.282 Other psychoactive substance dependence with psychoactive substance-induced sleep disorder; F31.9 Bipolar disorder, unspecified; I10 Essential (primary) hypertension; I48.91 Unspecified atrial fibrillation; Z79.01 Long term (current) use of anticoagulants; D64.9 Anemia, unspecified
CPT/HCPCS: 36415; 80053; 81003; 85027; 86593; 87086; J2794

== ENCOUNTER 2023-03-28 13:28 | Inpatient (IN) | payer OTHER ==
[2023-03-28 14:12] VITALS: BMI 35.2
[2023-03-28] MEDS ORDERED: BENZONATATE 200 MG CAPSULE PO PRN (17:02)
[2023-03-28] MEDS ORDERED: LOPERAMIDE HCL 2 MG CAPSULE PO PRN (17:02)
[2023-03-28] MEDS ORDERED: MAG HYDROX/AL HYDROX/SIMETH 30 ML UNIT-DOSE CUP PO PRN (17:02)
[2023-03-28] MEDS ORDERED: guaiFENesin 600 MG TABLET.ER (FP) PO PRN (17:02)
[2023-03-28] MEDS ORDERED: NICOTINE POLACRILEX 2 MG GUM BUC PRN (17:02)
[2023-03-28] MEDS ORDERED: P-EPHED 60MG/TRIPROLIDI 2.5MG TABLET PO PRN (17:02)
[2023-03-28] MEDS ORDERED: POLYETHYLENE GLYCOL (HEALTHYLAX) 3350 17 GM PACKET PO PRN (17:02)
[2023-03-28] MEDS ORDERED: IBUPROFEN 600 MG TABLET (FP) PO PRN (17:02)
[2023-03-28] MEDS ORDERED: NALOXONE HCL (KLOXXADO) 8 MG SPRAY NS PRN (17:02)
[2023-03-28] MEDS ORDERED: MELATONIN 5 MG TABLETS PO PRN (17:02)
[2023-03-28] MEDS ORDERED: NALOXONE HCL 0.4 MG/ML VIAL IM PRN (17:02)
[2023-03-28] MEDS ORDERED: IBUPROFEN 400 MG TABLET (FP) PO PRN (17:02)
[2023-03-28] MEDS ORDERED: ACETAMINOPHEN 325 MG TABLET (FP) PO PRN (17:02)
[2023-03-28] MEDS ORDERED: BISMUTH SUBSALICYLATE 524 MG/30 ML PO PRN (17:02)
[2023-03-28] MEDS ORDERED: MAGNESIUM HYDROX 2400MG/30ML ORAL SUSPENSION 30 ML CUP PO PRN (17:02)
[2023-03-28] MEDS ORDERED: ONDANSETRON *ODT* 4 MG TABLET SL PRN (17:02)
[2023-03-28] MEDS ORDERED: DICYCLOMINE HCL 10 MG CAPSULE PO PRN (17:02)
[2023-03-28] MEDS ORDERED: BENZOCAINE/MENTHOL (CHLORASEPTIC ) LOZENGE MM PRN (17:02)
[2023-03-28] MEDS ORDERED: amLODIPine BESYLATE 5 MG TABLET (FP) PO SCH (17:15)
[2023-03-28] MEDS ORDERED: metoPROLOL SUCCINATE 25 MG TAB.SR.24H (FP) PO SCH (17:15)
[2023-03-28] MEDS: amLODIPine BESYLATE 5 MG TABLET (FP) PO SCH (19:12)
[2023-03-28] MEDS: ASPIRIN 81 MG CHEWABLE TABLETS PO SCH (19:12)
[2023-03-28] MEDS ORDERED: ATORVASTATIN CA 10 MG TABLET (FP) PO SCH (22:00)
[2023-03-28] MEDS ORDERED: THIAMINE HCL 100 MG TABLET (FP) PO SCH (22:00)
[2023-03-29 09:42] VITALS: BP 159/106; PULSE 70; RESP 17; TEMP 97.5
[2023-03-29] MEDS ORDERED: PRENATAL VITAMINS W/ FOLIC ACID TABLET (FP) PO SCH (10:00)
[2023-03-29] MEDS: ASPIRIN 81 MG CHEWABLE TABLETS PO SCH (10:18)
[2023-03-29] MEDS: amLODIPine BESYLATE 5 MG TABLET (FP) PO SCH (10:18)
== END 2023-03-29 11:20 | disposition home or self-care (01) | DRG 897 ==
LOC: YASAS 13:28 → Y6N 18:24
PROVIDERS: ADMIT Allergy & Immunology; ATTEND Surgery
PROC: HZ2ZZZZ Detoxification Services for Substance Abuse Treatment (ICD-10-PCS; principal; 2023-03-28)
DX: F11.23 Opioid dependence with withdrawal (principal); F19.282 Other psychoactive substance dependence with psychoactive substance-induced sleep disorder; F17.213 Nicotine dependence, cigarettes, with withdrawal; F19.24 Other psychoactive substance dependence with psychoactive substance-induced mood disorder; E78.5 Hyperlipidemia, unspecified; I10 Essential (primary) hypertension; I48.91 Unspecified atrial fibrillation; Z79.01 Long term (current) use of anticoagulants; J45.20 Mild intermittent asthma, uncomplicated; Z99.89 Dependence on other enabling machines and devices
CPT/HCPCS: 87635